=== PATIENT | female | born 1965 | race Caucasian/White ===

== ENCOUNTER 2021-02-09 18:17 | Outpatient (REF) | payer BC, SELFPAY | END 2021-02-09 18:18 | disposition home or self-care (01) | LOC: HO.LNP 18:17 | PROVIDERS: Visit Provider Family Medicine | DX: Z20.822 Contact with and (suspected) exposure to COVID-19 (principal); R05 Cough | CPT/HCPCS: U0003; U0005 ==

== ENCOUNTER 2022-11-06 07:10 | Outpatient (REF) | payer BC, SELFPAY ==
[2022-11-06 11:40] LABS: Hematocrit 40.1 % (37.0-47.0); Hemoglobin 12.8 g/dl (12.0-16.0); Mean Corpuscular HGB Conc 31.9 g/dl (31.0-35.0); Mean Corpuscular Hemoglobin 28.6 pg (27.0-33.0); Mean Corpuscular Volume 89.5 fL (80.0-98.0); Mean Platelet Volume 10.4 fL (9.4-12.3); Platelet Count 259 X10*3/uL (160-400); Red Blood Count 4.48 X10*6/uL (4.20-5.50); Red Cell Distribution Width 13.4 % (11.0-16.0)
[2022-11-06 12:12] LABS: Alanine Aminotransferase 17 U/L (0-31); Albumin Level 4.1 g/dL (3.5-5.0); Alkaline Phosphatase 85 U/L (39-117); Anion Gap 10 (12-20); Aspartate Amino Transferase 21 U/L (5-31); Bilirubin Total 0.6 mg/dL (0.0-1.0); Blood Urea Nitrogen 14 mg/dL (9-16); Calcium 9.3 mg/dL (8.4-10.2); Carbon Dioxide 31 mmol/L (22-29); Chloride 104 mmol/L (96-108); Cholesterol 246 mg/dL; Estimated Glomerular Filt Rate > 60; Glucose Fasting 147 mg/dL (60-99); HDL Cholesterol 31 mg/dL; LDL Cholesterol Calculated 181 mg/dl; Potassium 4.4 mmol/L (3.3-5.1); Sodium 141 mmol/L (135-145); TSH reflex Free T4 2.84 uIU/mL (0.32-4.0); Total Protein 6.9 g/dL (6.5-8.0); Triglycerides 170 mg/dL
== END 2022-11-06 07:11 | disposition home or self-care (01) ==
LOC: HO.WFDLDS 07:10
PROVIDERS: Visit Provider Hospitalist
DX: Z00.00 Encounter for general adult medical examination without abnormal findings (principal)
CPT/HCPCS: 36415; 80053; 80061; 84443; 85027

== ENCOUNTER 2022-11-14 09:07 | Outpatient (REF) | payer BC, SELFPAY ==
[2022-11-14 13:11] LABS: Influenza A PCR POSITIVE (Negative); Influenza B PCR NEGATIVE (Negative); Resp Syncy Virus RNA Qual PCR NEGATIVE (Negative); SARS COV2 PCR INHOUSE NEGATIVE (Negative)
== END 2022-11-14 09:08 | disposition home or self-care (01) ==
LOC: HO.LAB 09:07
PROVIDERS: Visit Provider Nurse Practitioner Family
DX: Z20.822 Contact with and (suspected) exposure to COVID-19 (principal); B34.9 Viral infection, unspecified
CPT/HCPCS: 0241U

== ENCOUNTER 2023-09-25 14:41 | Outpatient (AMB) | payer BC, SELFPAY ==
--- NOTE | 2023-09-25 14:47 | A.OFFPC_ITS ---
Vital Signs 09/25/23 14:48 Height 5 ft 4 in Weight 198 lb 4 oz BMI 34.0 BP 122/60 Blood Pressure Location Rt brachial Position Sitting Respiration 13 Pulse 81 Pulse Source Pulse Oximeter Temp 97.6 F Temp Source Temporal Artery Scan Pulse Oximetry (%) 99 Oxygen Delivery Method Room Air Intake Visit Reasons: discharge from [place] 09/09-09/11 [facility] patient Intake Note: Patient states that shes been experiencing acid reflux really bad. Patient states that her symptoms when she went to the hospital has not subsided. She is still experiencing dizziness, nausea, light headedness and dry heaving. Patient would like an referral to get a mammogram done. Patient would like a refill on Meloxicam and Citalopram if possible. 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 Accompanied by: Self / Same As Patient Allergies No Known Allergies Allergy (Verified 09/25/23 15:18) Medication List - Last Reconciled 09/25/23 by Catrachito Hagen CNP atorvastatin 40 mg PO DAILY citalopram 40 mg PO QAM meloxicam 15 mg PO DAILY sumatriptan succinate 50 mg PO Q2H PRN 3 months Tobacco use date assessed: 09/25/23 Dental Screening Dental Screen Date: 09/25/23 Did you have a dental visit in the last 12 months?: No Did you have a dental problem in the last 6 months where you did not have access to dental care?: No Was dental information given to patient?: Patient has dentist HPI HPI Comments History of Present Illness Details 57-year-old female presents for follow-u p visit. She was evaluated at [facility] ED on 09/10/2023 for dizziness, generalized headache, nausea, and vomiting. She was admitted and discharged on 09/11/2023. CT of the head, and brain MRI were unremarkable. CBC and CMP levels were unremarkable. A1c was 6.6%. Triglyceride was 216, total cholesterol was 207, and LDL was 134. She was started on atorvastatin 40 mg daily and counseled on lifestyle modification. She was advised follow-up with PCP. She notes that she continues to experience dizziness, nausea, lightheadedness, and dry heaving. She notes notes that the dizziness and lightheadedness worsens with changing positions quickly. She notes she was not hydrating well before the onset of her symptoms. She reports indigestion/heartburn for the past 7 months. She has been taking tums with improvement. She notes that she ran out of Citalopram a year ago and requests a new refill. She reports anxiousness, low energy, and constant crying. She notes that she was diagnosed with diabetes 13 years ago. She was on Actos and Metformin. She had lost 90 lb following gastric lab band and sleeve. Her A1c dropped to 5.6% and therefore the Actos and Metformin were discontinued. She notes that she has since gained 25 lb in the past 5 years. She states she will start lifestyle modification. [facility] Medical History (Updated 09/25/23 @ 16:09 by Catrachito Hagen CNP) Depression Anxiety Diabetes mellitus Hyperlipidemia Surgical History Gastric bypass status for obesity Hx of laparoscopic gastric banding Family History Father COPD (chronic obstructive pulmonary disease) Cardiac abnormality No family history of mental disorder Mother No family history of mental disorder Breast cancer Sister No family history of mental disorder Breast cancer Sister No family history of mental disorder Ovarian cancer in remission Social History Household Members: Family Housing: House Alcohol intake: current Alcohol intake frequency: holidays/special occasions only Alcohol type: wine Patient Tobacco Use Status: Never used Tobacco e-Cigarette/Vaping Use: Never Used service: No Current occupational status: employed 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 1. Little interest or pleasure in doing things: several days 2. Feeling down, depressed, or hopeless: several days 3. Trouble falling or staying asleep, or sleeping too much: nearly every day 4. Feeling tired or having little energy: nearly every day 5. Poor appetite or overeating: more than half the days 6. Feeling bad about yourself - or that you are a failure or have let yourself or your family down: several days 7. Trouble concentrating on things, such as reading the newspaper or watching television: several days 8. Moving or speaking so slowly that other people could have noticed. Or the opposite - being so fidgety or restless that you have been moving around a lot more than usual: not at all 9. Thoughts that you would be better off or of hurting yourself in some way: not at all Total score: 12 Depression Screening Interpretation: Positive Depression Screening Follow-up: Existing condition and In treatment Depression Screening Done: Yes Source: Developed by Drs. Xavi Benitez, Adry Tovar, Andrzej Cross and colleagues, with an educational lenin from [employer]. Thrive Questionnaire Date Thrive assessed: 10/29/22 MELANI-7 AMB Questionnaire MELANI-7 Date MELANI - 7 assessed: 09/25/23 Feeling nervous, anxious, or on edge: 1 = Several days Not being able to stop or control worryin = Several days Worrying too much about different things: 1 = Several days Trouble relaxin = Several days Being so restless that it is hard to sit still: 2 = More than half the days Becoming easily annoyed or irritable: 1 = Several days Feeling afraid as if something awful might happen: 0 = Not at all Total MELANI-7 score (0-4 normal; 5-9 mild; 10-14 moderate; 15-21 severe): 7 Source: Developed by Drs. Xavi Benitez, Adry Tovar, Andrzej Cross and colleagues, with an educational lenin from [employer]. Review of Systems Const Details: Const Denies chills, Denies fatigue, Denies fever(s), Denies headache(s) and Denies weakness ENT Reports dizziness and Denies headache(s) Card Denies chest pain, Reports lightheadedness, Denies dyspnea and Denies other (P alpitations) Resp Denies cough, Denies dyspnea, Denies wheezing and Denies other (shortness of breath) GI Reports heartburn/indigestion, Denies abdominal pain, Denies melena, Denies hematochezia, Denies change in bowel habits, Denies dyspepsia and Reports nausea Denies hematuria and Denies dysuria Musc Denies abnormal gait, Denies myalgias, Denies arthralgias, Denies numbness and Denies tingling Skin/Breast Denies rash, Denies unusual bruising and Denies wounds Neuro Denies abnormal gait, Reports dizziness, Denies headache(s), Denies memory loss, Denies numbness, Denies Sensory deficit (Neuro), Denies tingling and Denies weakness Psych Reports anxiety, Reports depression, Denies memory loss Endo Denies cold intolerance, Denies fatigue, Denies heat intolerance, Denies polydipsia and Denies polyuria Aller/Immun Denies wheezing Physical exam (Primary Care) Vital Signs: Last Vital Signs Temp 97.6 F 09/25/23 14:48 Pulse 81 09/25/23 14:48 Resp 13 09/25/23 14:48 BP 122/60 09/25/23 14:48 Pulse Ox 99 09/25/23 14:48 Oxygen Delivery Method Room Air 09/25/23 14:48 BMI result Body Mass Index 34.0 Tobacco/Smoking Status: Tobacco use Status Tobacco use date assessed 09/25/23 09/25/23 15:04 Patient Tobacco Use Status Never used Tobacco 09/25/23 15:04 e-Cigarette/Vaping Use Never Used 09/25/23 15:04 PHQ-9: PHQ-9 Score PHQ-9: Total score 12 09/25/23 15:47 Depression Screening Interpretation: Positive Depression Screening Follow-up: Existing condition and In treatment Thrive Assessment: Date of Thrive Assessment Date Thrive assessed 10/29/22 09/25/23 15:04 Const Other: General: no acute distress and well developed Nutritional Appearance: well nourished Orientation/consciousness: patient oriented x3 HENMT Head: Yes normocephalic and Yes atraumatic Eyes General: appearance normal, both eyes and all related structures Pupils: Equal, round and reactive pupils present EOM: EOMs intact bilaterally Resp Effort & Inspection: normal respiratory effort Auscultation: clear to auscultation bilaterally Cardio Rate: regular rate Rhythm: regular rhythm Heart sounds: S1 normal heart sound present, S2 normal heart sound present, no gallops, no murmurs and no rubs GI Palpation (GI): No Abdominal aortic bruit present, Soft to palpation, nontender, No hepatosplenomegaly present and No Rebound tenderness present Auscultation: normal bowel sounds General: Yes no CVA tenderness Back/Spine/Pelvis Back: no CVA tenderness Cervical Spine: cervical ROM normal and No Cervical spine tenderness Thoracic/Lumbar Spine: thoraco-lumbar ROM normal, No pain with thoraco-lumbar ROM, No thoracic spinal tenderness and No lumbar spinal tenderness Extrem General: Yes normal to inspection, No edema and No calf tenderness Skin General: warm and dry. Normal skin color. Normal skin turgor Lesions: no lesions Rashes: no rashes Trauma: no lacerations or abrasions Wounds: no wounds Nails: normal Neuro General: patient oriented x3, gait normal and no focal neuro deficit Cranial nerves: Yes Equal, round and reactive pupils present Cognition (Neuro): normal cognition Gait exam (Neuro): Normal gait present Sensory Exam: No Sensory deficit (Neuro) Psych Appearance: grossly normal Affect: normal affect Attitude: cooperative Thought process: Normal thought process present Assessment and Plan Assessment & Plan (1) Dizziness: Code(s): R42 - Dizziness and giddiness Plan: She notes that she continues to experience dizziness, nausea, lightheadedness, and dry heaving. She notes notes that the dizziness and lightheadedness worsens with changing positions quickly. She admits to poor hydration prior to her symptoms onset. Likely dehydration Recent labs were unremarkable Adequate hydration encouraged Advised to change positions slowly Follow-up in 6 weeks or return sooner with worsening or new symptoms Verbalized understanding and agreed with treatment plan. (2) Lightheadedness: Code(s): R42 - Dizziness and giddiness Plan: As above (3) Heartburn: Code(s): R12 - Heartburn Plan: She reports indigestion/heartburn for the past 7 months. She has been taking tums with improvement. Advised to avoid fried or greasy food Famotidine ordered. Take as prescribed Follow-up in in 6 weeks or return sooner with worsening or new symptoms Verbalized understanding and agreed with treatment plan. (4) Diabetes mellitus: Code(s): E11.9 - Type 2 diabetes mellitus without complications Qualifiers: Diabetes mellitus complication status: without complication Diabetes mellitus type: type 2 Plan: Recent A1c was 6.6%, below goal of less than 7.0% She reports history of taking Actos and metformin which were discontinued due to controlled A1c of below 6% ADA diet and routine exercise encouraged Will recheck A1c in 3 months Return with symptoms or concerns Verbalized understanding and agreed with treatment plan. (5) Hyperlipidemia: Code(s): E78.5 - Hyperlipidemia, unspecified Plan: Her recent Triglyceride, total cholesterol, and LDL levels were elevated, 216, 207, and 134 respectively. She was was prescribed atorvastatin 40 mg daily during her recent hospital admission. Advised to continue with current treatment regimen Advised to limit foods high in saturated fat and avoid foods high trans fat Routine exercise encouraged Will recheck lipid levels in 6 weeks. Advised to fast for 10-12 hours before getting blood work done Follow-up in 6 weeks Verbalized understanding and agreed with treatment plan. (6) Anxiety with depression: Code(s): F41.8 - Other specified anxiety disorders Plan: She notes that she ran out of Citalopram a year ago and requests a new refill. She reports anxiousness, low energy, and constant crying. She notes that her symptoms were controlled while on citalopram MELANI-7 in PHQ-9 scores revealed mild anxiety and moderate depression respectively Citalopram refilled. Take as prescribed Routine exercise encouraged Follow-up in 6 weeks or return sooner with worsening or new symptoms Verbalized understanding and agreed with treatment plan. Orders: Orders Lipid Panel 6 Weeks E78.5 - Hyperlipidemia, unspecified Medications: New famotidine 20 mg PO DAILY 30 tabs 3RF 30 days Changed From citalopram 40 mg PO QAM 90 tabs 3RF To citalopram 40 mg PO QAM 90 days 90 tabs 1RF Coding Level of Care Code Est Pt Level 4 (29332) Diagnoses Dizziness R42 Lightheadedness R42 Heartburn R12 Diabetes mellitus E11.9 Diabetes mellitus complication status: without complication Diabetes mellitus type: type 2 Hyperlipidemia E78.5 Anxiety with depression F41.8
[2023-09-25 14:48] VITALS: BP 122/60; PULSE 81; RESP 13; TEMP 36.4; O2SAT 99; BMI 34.0
== END 2023-09-25 16:01 | disposition home or self-care (01) ==
PROVIDERS: PCP Nurse Practitioner Family; Visit Provider Nurse Practitioner Family
DX: R42 Dizziness and giddiness (principal); R12 Heartburn; E11.9 Type 2 diabetes mellitus without complications; E78.5 Hyperlipidemia, unspecified; F41.8 Other specified anxiety disorders
CPT/HCPCS: 99214

== ENCOUNTER 2023-10-28 14:39 | Outpatient (AMB) | payer BC, SELFPAY ==
--- NOTE | 2023-10-28 14:50 | A.OFFPC_ITS ---
Vital Signs 10/28/23 14:51 Height 5 ft 4 in Weight 202 lb 3 oz BMI 34.7 BP 108/66 Blood Pressure Location Rt brachial Position Sitting Respiration 13 Pulse 77 Pulse Source Pulse Oximeter Temp 97.6 F Temp Source Temporal Artery Scan Pulse Oximetry (%) 98 Oxygen Delivery Method Room Air Intake Visit Reasons: dizziness/lighthead, DM, heartburn, anxiety/depres Intake Note: Patient states that knee keeps giving out and gets stiff. Stiffness is in left leg and sometimes hurts when bending. Dizziness and light headedness is getting better as well ass anxiety and depression. Patient also states that heartburn has also been getting better and medications are also working. 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 Accompanied by: Self / Same As Patient Allergies No Known Allergies Allergy (Verified 10/28/23 15:16) Medication List - Last Reconciled 10/28/23 by Catrachito Hagen CNP atorvastatin 40 mg PO DAILY citalopram 40 mg PO QAM 90 days famotidine 20 mg PO DAILY 30 days Tobacco use date assessed: 09/25/23 Dental Screening Dental Screen Date: 10/28/23 Did you have a dental visit in the last 12 months?: No Did you have a dental problem in the last 6 months where you did not have access to dental care?: No Was dental information given to patient?: Patient has dentist HPI HPI Comments 2 History of Present Illness Details 58-year-old female presents for dizzines s, lightheadedness, heartburn, hyperlipidemia, anxiety, and depression follow-up She notes that her symptoms are improving She admits to taking her medication as prescribed without adverse reactions She was started on atorvastatin while hospitalized last month. She has not gotten her repeat lipid panel blood work done She reports stiffness in her left knee with intermittent pain with bending. She notes that the left knee keeps giving out. She denies tingling, numbness, loss of sensation. She denies fall, injury, or trauma [facility] Medical History Depression Anxiety Diabetes mellitus Hyperlipidemia Surgical History Gastric bypass status for obesity Hx of laparoscopic gastric banding Family History Father COPD (chronic obstructive pulmonary disease) Cardiac abnormality No family history of mental disorder Mother No family history of mental disorder Breast cancer Sister No family history of mental disorder Breast cancer Sister No family history of mental disorder Ovarian cancer in remission Social History Household Members: Family Housing: House Alcohol intake: current Alcohol intake frequency: holidays/special occasions only Alcohol type: wine Patient Tobacco Use Status: Never used Tobacco e-Cigarette/Vaping Use: Never Used service: No Current occupational status: employed 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 1. Little interest or pleasure in doing things: not at all 2. Feeling down, depressed, or hopeless: not at all 3. Trouble falling or staying asleep, or sleeping too much: more than half the days 4. Feeling tired or having little energy: more than half the days 5. Poor appetite or overeating: several days 6. Feeling bad about yourself - or that you are a failure or have let yourself or your family down: several days 7. Trouble concentrating on things, such as reading the newspaper or watching television: several days 8. Moving or speaking so slowly that other people could have noticed. Or the opposite - being so fidgety or restless that you have been moving around a lot more than usual: not at all 9. Thoughts that you would be better off or of hurting yourself in some way: not at all Total score: 7 Depression Screening Interpretation: Positive Depression Screening Follow-up: Existing condition and In treatment Depression Screening Done: Yes 74458 - PHQ-9 Billing: Yes Source: Developed by Drs. Xavi Benitez, Adry Tovar, Andrzej Cross and colleagues, with an educational lenin from [employer]. Thrive Questionnaire Date Thrive assessed: 10/29/22 MELANI-7 AMB Questionnaire MELANI-7 Date MELANI - 7 assessed: 10/28/23 Feeling nervous, anxious, or on edge: 1 = Several days Not being able to stop or control worryin = Several days Worrying too much about different things: 1 = Several days Trouble relaxin = Several days Being so restless that it is hard to sit still: 1 = Several days Becoming easily annoyed or irritable: 1 = Several days Feeling afraid as if something awful might happen: 0 = Not at all Total MELANI-7 score (0-4 normal; 5-9 mild; 10-14 moderate; 15-21 severe): 6 Source: Developed by Drs. Xavi Benitez, Adry Tovar, Andrzej Cross and colleagues, with an educational lenin from [employer]. MELANI-7 Assessment Billing MELANI-7 Assessment Tool: MELANI-7 Assessment 76402 Review of Systems Const Details: Const Denies chills, Denies fatigue, Denies fever(s), Denies headache(s) and Denies weakness ENT Denies dizziness and Denies headache(s) Card Denies chest pain, Denies lightheadedness, Denies dyspnea and Denies other (Palpitations) Resp Denies cough, Denies dyspnea, Denies wheezing and Denies other ( shortness of breath) GI Denies abdominal pain, Denies melena, Denies hematochezia, Denies change in bowel habits, Denies dyspepsia and Denies nausea Denies hematuria and Denies dysuria Musc Reports as per HPI Skin/Breast Denies rash, Denies unusual bruising and Denies wounds Neuro Denies abnormal gait, Denies dizziness, Denies headache(s), Denies memory loss, Denies numbness, Denies Sensory deficit (Neuro), Denies tingling and Denies weakness Psych Denies anxiety, Denies depression, Denies memory loss Endo Denies cold intolerance, Denies fatigue, Denies heat intolerance, Denies polydipsia and Denies polyuria Aller/Immun Denies wheezing Physical exam (Primary Care) Vital Signs: Last Vital Signs Temp 97.6 F 10/28/23 14:51 Pulse 77 10/28/23 14:51 Resp 13 10/28/23 14:51 BP 108/66 10/28/23 14:51 Pulse Ox 98 10/28/23 14:51 Oxygen Delivery Method Room Air 10/28/23 14:51 BMI result Body Mass Index 34.7 Tobacco/Smoking Status: Tobacco use Status Tobacco use date assessed 09/25/23 10/28/23 14:50 Patient Tobacco Use Status Never used Tobacco 10/28/23 14:50 e-Cigarette/Vaping Use Never Used 10/28/23 14:50 PHQ-9: PHQ-9 Score PHQ-9: Total score 7 10/28/23 15:06 Depression Screening Interpretation: Positive Depression Screening Follow-up: Existing condition and In treatment Thrive Assessment: Date of Thrive Assessment Date Thrive assessed 10/29/22 10/28/23 14:50 Const Other: General: no acute distress and well developed Nutritional Appearance: well nourished Orientation/consciousness: patient oriented x3 HENMT Head: Yes normocephalic and Yes atraumatic Eyes General: appearance normal, both eyes and all related structures Pupils: Equal, round and reactive pupils present EOM: EOMs intact bilaterally Resp Effort & Inspection: normal respiratory effort Auscultation: clear to auscultation bilaterally Cardio Rate: regular rate Rhythm: regular rhythm Heart sounds: S1 normal heart sound present, S2 normal heart sound present, no gallops, no murmurs and no rubs GI Palpation (GI): No Abdominal aortic bruit present, Soft to palpation, nontender, No hepatosplenomegaly present and No Rebound tenderness present Auscultation: normal bowel sounds General: Yes no CVA tenderness Back/Spine/Pelvis Back: no CVA tenderness Cervical Spine: cervical ROM normal and No Cervical spine tenderness Thoracic/Lumbar Spine: thoraco-lumbar ROM normal, No pain with thoraco-lumbar ROM, No thoracic spinal tenderness and No lumbar spinal tenderness Extrem General: Yes normal to inspection, No edema and No calf tenderness Skin General: warm and dry. Normal skin color. Normal skin turgor Lesions: no lesions Rashes: no rashes Trauma: no lacerations or abrasions Wounds: no wounds Nails: normal Neuro General: patient oriented x3, gait normal and no focal neuro deficit Cranial nerves: Yes Equal, round and reactive pupils present Cognition (Neuro): normal cognition Gait exam (Neuro): Normal gait present Sensory Exam: No Sensory deficit (Neuro) Psych Appearance: grossly normal Affect: normal affect Attitude: cooperative Thought process: Normal thought process present Assessment and Plan Assessment & Plan (1) Anxiety with depression: Code(s): F41.8 - Other specified anxiety disorders Plan: Reports improved anxiety depression symptoms PHQ-9 and MELANI-7 scores revealed mild depression and anxiety Continue to take citalopram as prescribed Routine exercise encouraged Follow-up in 1 month for an extended physical exam Verbalized understanding and agreed with treatment plan (2) Stiffness of left knee: Code(s): M25.662 - Stiffness of left knee, not elsewhere classified Plan: Reports stiffness in her left knee with intermittent pain with bending May take Tylenol ibuprofen for pain or discomfort Warm/cold compresses encouraged Referred to physical therapy Return with worsening or new symptoms Verbalized understanding and agreed with treatment plan (3) Dizziness: Code(s): R42 - Dizziness and giddiness Plan: Improving Adequate hydration encouraged Advised to change positions slowly from lying to rising Follow-up with worsening or new symptoms Verbalized understanding and agreed with treatment plan (4) Lightheadedness: Code(s): R42 - Dizziness and giddiness Plan: As above (5) Heartburn: Code(s): R12 - Heartburn Plan: Improving Continue to take famotidine as prescribed Return with worsening or new symptoms Verbalized understanding and agreed with treatment plan (6) Hyperlipidemia: Code(s): E78.5 - Hyperlipidemia, unspecified Plan: She was started on atorvastatin while hospitalized last month. She has not gotten her repeat lipid panel blood work done Encouraged to get fasting blood work done before her next visit Verbalized understanding and agreed with treatment Orders: Orders PT Evaluation and Treatment Today M25.662 - Stiffness of left knee, not elsewhere classified Coding Level of Care Code Est Pt Level 3 (82078) Diagnoses Anxiety with depression F41.8 Stiffness of left knee M25.662 Dizziness R42 Lightheadedness R42 Heartburn R12 Hyperlipidemia E78.5 Additional Codes MELANI-7 Assessment Billing - MELANI-7 Assessment Tool: MELANI-7 Assessment 36432 ([id number])
[2023-10-28 14:51] VITALS: BP 108/66; PULSE 77; RESP 13; TEMP 36.4; O2SAT 98; BMI 34.7
== END 2023-10-28 15:30 | disposition home or self-care (01) ==
PROVIDERS: PCP Nurse Practitioner Family; Visit Provider Nurse Practitioner Family
DX: F41.8 Other specified anxiety disorders (principal); M25.662 Stiffness of left knee, not elsewhere classified; R42 Dizziness and giddiness; R12 Heartburn; E78.5 Hyperlipidemia, unspecified
CPT/HCPCS: 96127; 99213

== ENCOUNTER 2023-11-26 08:47 | Outpatient (REF) | payer BC, SELFPAY ==
[2023-11-26 12:11] LABS: Cholesterol 197 mg/dL (<200); HDL Cholesterol 31 mg/dL (>40); LDL Cholesterol Calculated 123 mg/dL (<100); Triglycerides 215 mg/dL (<150)
== END 2023-11-26 08:48 | disposition home or self-care (01) ==
LOC: HO.WFDLDS 08:47
PROVIDERS: Visit Provider Nurse Practitioner Family
DX: E78.5 Hyperlipidemia, unspecified (principal)
CPT/HCPCS: 36415; 80061

== ENCOUNTER 2023-12-05 08:24 | Outpatient (AMB) | payer BC, SELFPAY ==
[2023-12-05 08:32] VITALS: BP 104/60; PULSE 92; RESP 13; TEMP 36.6; O2SAT 98; BMI 34.4
--- NOTE | 2023-12-05 08:32 | MHC.PC.OV ---
Vital Signs 12/05/23 08:32 Height 5 ft 4 in Weight 200 lb 4 oz BMI 34.4 BP 104/60 Blood Pressure Location Rt brachial Position Sitting Respiration 13 Pulse 92 Pulse Source Pulse Oximeter Temp 97.9 F Temp Source Temporal Artery Scan Pulse Oximetry (%) 98 Oxygen Delivery Method Room Air Intake Visit Reasons: CPE Intake Note: Patient states that the famotidine isnt working for acid reflux. Patient would like script for joint pain if possible or something over the counter. 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: No Accompanied by: Self / Same As Patient Allergies No Known Allergies Allergy (Verified 12/05/23 08:47) Medication List - Last Reviewed 12/05/23 by Daxa Salter MA acetaminophen ER (Tylenol 8 Hour) 650 mg PO Q8H PRN atorvastatin 40 mg PO DAILY citalopram 40 mg PO QAM 90 days fenofibrate 54 mg PO DAILY 90 days omeprazole 20 mg PO DAILY 90 days Tobacco use date assessed: 12/05/23 Dental Screening Dental Screen Date: 12/05/23 Did you have a dental visit in the last 12 months?: No Did you have a dental problem in the last 6 months where you did not have access to dental care?: No Was dental information given to patient?: Patient has dentist HPI HPI Comments History of Present Illness Details 58-year-old presents 58-year-old female presents for an extended physical exam She has history diabetes, hyperlipidemia, GERD, anxiety, and depression She admits to taking Citalopram as prescribed without adverse reactions She notes that she was only given 30 days supply, instead of 90 days, of Citalopram and Atovastatin. She stopped taking Atovastatin because she ran out of refills She notes that famotidine is not effective for her acid reflux. She has been taking Omeprazole with relief She requests medication for intermittent generalized joints pain (shoulder, wrists, knees, and ankles) She will start physical therapy next week for left knee stiffness Last colonoscopy 03/21/2023: normal Last mammogram was about 5 years ago: normal Last pap smear test was 3 years ago: normal She has never been been vaccinated for shingles She had initial COVID-19 vaccines She has not receive current flu vaccine. She notes adverse reactions to the flu vaccine and therefore declines the vaccines [facility] Medical History Depression Anxiety Diabetes mellitus Hyperlipidemia Surgical History Gastric bypass status for obesity Hx of laparoscopic gastric banding Family History Father COPD (chronic obstructive pulmonary disease) Cardiac abnormality No family history of mental disorder Mother No family history of mental disorder Breast cancer Sister No family history of mental disorder Breast cancer Sister No family history of mental disorder Ovarian cancer in remission Social History Household Members: Family Housing: House Alcohol intake: current Alcohol intake frequency: holidays/special occasions only Alcohol type: wine Patient Tobacco Use Status: Never used Tobacco e-Cigarette/Vaping Use: Never Used service: No Current occupational status: employed 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 1. Little interest or pleasure in doing things: more than half the days 2. Feeling down, depressed, or hopeless: several days 3. Trouble falling or staying asleep, or sleeping too much: nearly every day 4. Feeling tired or having little energy: nearly every day 5. Poor appetite or overeating: more than half the days 6. Feeling bad about yourself - or that you are a failure or have let yourself or your family down: not at all 7. Trouble concentrating on things, such as reading the newspaper or watching television: more than half the days 8. Moving or speaking so slowly that other people could have noticed. Or the opposite - being so fidgety or restless that you have been moving around a lot more than usual: several days 9. Thoughts that you would be better off or of hurting yourself in some way: not at all Total score: 14 Depression Screening Interpretation: Positive Depression Screening Follow-up: Existing condition and In treatment Depression Screening Done: Yes 45500 - PHQ-9 Billing: Yes Source: Developed by Drs. Xavi Benitez, Adry Tovar, Andrzej Cross and colleagues, with an educational lenin from [email or web address]. Thrive Questionnaire Date Thrive assessed: 12/05/23 I am a: Patient What is your living situation today?: I have a steady place to live Within the past 12 months, did the food you bought not last and you didn't have the money to get more?: Never true Within the past 12 months, did you worry whether your food would run out before you got money to buy more?: Never true Do you have trouble paying for medicines?: No Do you have trouble getting transportation to medical appointments?: No Do you have trouble paying your heating and electricity bill?: No Do you have trouble taking care of your child, family member or friend?: No Do you have trouble with day-to-day activities such as bathing, preparing meals, shopping, managing finances, etc.?: No Are you currently unemployed and looking for a job?: No Are you interested in more education?: No Please select the resources that you would like help with: None Currently or been in a relationship where the following occur: no concerns reported AUDIT C Alcohol Use Questionnaire (AUDIT-C) 1. How often do you have a drink containing alcohol?: 2-4 times a month 2. How many drinks containing alcohol do you have on a typical day when you are drinking?: 1 or 2 3. How often do you have six or more drinks on one occasion?: Never Total Score: 2 MELANI-7 AMB Questionnaire MELANI-7 Date MELANI - 7 assessed: 12/05/23 Feeling nervous, anxious, or on edge: 1 = Several days Not being able to stop or control worryin = Several days Worrying too much about different things: 1 = Several days Trouble relaxin = Several days Being so restless that it is hard to sit still: 2 = More than half the days Becoming easily annoyed or irritable: 1 = Several days Feeling afraid as if something awful might happen: 0 = Not at all Total MELANI-7 score (0-4 normal; 5-9 mild; 10-14 moderate; 15-21 severe): 7 Source: Developed by Drs. Xavi Benitez, Adry Tovar, Andrzej Cross and colleagues, with an educational lenin from [employer] MELANI-7 Assessment Billing MELANI-7 Assessment Tool: MELANI-7 Assessment 96938 Review of Systems Const Details: Const Denies chills, Denies fatigue, Denies fever(s), Denies headache(s) and Denies weakness ENT Denies dizziness and Denies headache(s) Card Denies chest pain, Denies lightheadedness, Denies dyspnea and Denies other (Palpitations) Resp Denies cough, Denies dyspnea, Denies wheezing and Denies other ( shortness of breath) GI Denies abdominal pain, Denies melena, Denies hematochezia, Denies change in bowel habits, Denies dyspepsia and Denies nausea Denies hematuria and Denies dysuria Musc Denies abnormal gait, Denies myalgias, Denies arthralgias, Denies numbness and Denies tingling Skin/Breast Denies rash, Denies unusual bruising and Denies wounds Neuro Denies abnormal gait, Denies dizziness, Denies headache(s), Denies memory loss, Denies numbness, Denies Sensory deficit (Neuro), Denies tingling and Denies weakness Psych Denies anxiety, Denies depression, Denies memory loss Endo Denies cold intolerance, Denies fatigue, Denies heat intolerance, Denies polydipsia and Denies polyuria Aller/Immun Denies wheezing Physical exam (Primary Care) Vital Signs: Last Vital Signs Temp 97.9 F 12/05/23 08:32 Pulse 92 12/05/23 08:32 Resp 13 12/05/23 08:32 BP 104/60 12/05/23 08:32 Pulse Ox 98 12/05/23 08:32 Oxygen Delivery Method Room Air 12/05/23 08:32 BMI result Body Mass Index 34.4 Tobacco/Smoking Status: Tobacco use Status Tobacco use date assessed 12/05/23 12/05/23 08:45 Patient Tobacco Use Status Never used Tobacco 12/05/23 08:41 e-Cigarette/Vaping Use Never Used 12/05/23 08:41 PHQ-9: PHQ-9 Score PHQ-9: Total score 14 12/05/23 08:49 Depression Screening Interpretation: Positive Depression Screening Follow-up: Existing condition and In treatment Thrive Assessment: Date of Thrive Assessment Date Thrive assessed 12/05/23 12/05/23 08:45 Currently or been in a relationship where the following occur: no concerns reported Const Other: General: no acute distress and well developed Nutritional Appearance: well nourished Orientation/consciousness: patient oriented x3 [facility] Head: Yes normocephalic and Yes atraumatic Eyes General: appearance normal, both eyes and all related structures Pupils: Equal, round and reactive pupils present EOM: EOMs intact bilaterally Resp Effort & Inspection: normal respiratory effort Auscultation: clear to auscultation bilaterally Cardio Rate: regular rate Rhythm: regular rhythm Heart sounds: S1 normal heart sound present, S2 normal heart sound present, no gallops, no murmurs and no rubs GI Palpation (GI): No Abdominal aortic bruit present, Soft to palpation, nontender, No hepatosplenomegaly present and No Rebound tenderness present Auscultation: normal bowel sounds General: Yes no CVA tenderness Back/Spine/Pelvis Back: no CVA tenderness Cervical Spine: cervical ROM normal and No Cervical spine tenderness Thoracic/Lumbar Spine: thoraco-lumbar ROM normal, No pain with thoraco-lumbar ROM, No thoracic spinal tenderness and No lumbar spinal tenderness Extrem General: Yes normal to inspection, No edema and No calf tenderness Skin General: warm and dry. Normal skin color. Normal skin turgor Lesions: no lesions Rashes: no rashes Trauma: no lacerations or abrasions Wounds: no wounds Nails: normal Neuro General: patient oriented x3, gait normal and no focal neuro deficit Cranial nerves: Yes Equal, round and reactive pupils present Cognition (Neuro): normal cognition Gait exam (Neuro): Normal gait present Sensory Exam: No Sensory deficit (Neuro) Psych Appearance: grossly normal Affect: normal affect Attitude: cooperative Thought process: Normal thought process present Assessment and Plan Assessment & Plan (1) Normal physical examination, routine: Code(s): Z00.00 - Encounter for general adult medical examination without abnormal findings Plan: No significant physical restrictions or limitations noted Continue current treatment regimen Follow-up in 1 month for diabetes, anxiety, and depression Return sooner with symptoms or concerns Verbalized understanding and agreed with treatment plan (2) Hyperlipidemia: Code(s): E78.5 - Hyperlipidemia, unspecified Plan: Recent lab results reviewed with the patient Triglyceride level is increased from previous, 215. Total cholesterol and LDL levels have improved, 187 and 123 respectively. LDL level is low, 31d Fenofibrate ordered. Take as prescribed The MA called the pharmacy and was informed that 30 days supplies of her atovastatin and citalopram were given to the patient and that the patient would have to request refills every 30 days. Patient notified and advised to take atovastatin and citalopram as prescribed Advised to limit foods high in saturated fat and avoid foods high in trans fat Routine exercise encouraged Will recheck lipid levels in 6-8 weeks Verbalized understanding and agreed with treatment plan (3) Generalized osteoarthritis of multiple sites: Code(s): M15.9 - Polyosteoarthritis, unspecified Plan: Reports intermittent pain to her shoulder, wrists, knees, and ankles Tylenol ordered. Take as prescribed Warm/cold compresses encouraged Follow-up with worsening or new symptoms Verbalized understanding and agreed with treatment plan (4) Heartburn: Code(s): R12 - Heartburn Plan: Famotidine was ineffective Otc Omeprazole provides relief Omeprazole ordered. Take as prescribed Follow-up with new or worsening symptoms Verbalized understanding and agreed with treatment plan (5) Breast cancer screening by mammogram: Code(s): Z12.31 - Encounter for screening mammogram for malignant neoplasm of breast Plan: Last mammogram was about 5 years ago: normal Mammogram ordered (6) Pap smear for cervical cancer screening: Code(s): Z12.4 - Encounter for screening for malignant neoplasm of cervix Plan: Last pap smear test was 3 years ago: normal Referred to [facility] rake operator for a Pap smear test (7) Vaccine counseling: Code(s): Z71.85 - Encounter for immunization safety counseling Plan: She has not received the shingles vaccines Instructed on importance of vaccination and encouraged to get vaccinated for shingles Verbalized understanding and agreed with treatment plan Orders: Orders MM screening mammo BI Today Z12.31 - Encounter for screening mammogram for malignant neoplasm of breast Referrals MEDICATION AID Referral Z12.4 - Encounter for screening for malignant neoplasm of cervix Medications: New omeprazole 20 mg PO DAILY 90 days 90 caps 1RF omeprazole 20 mg PO DAILY 30 days 30 caps 3RF fenofibrate 54 mg PO DAILY 90 days 90 tabs 1RF acetaminophen ER (Tylenol 8 Hour) 650 mg PO Q8H PRN 90 tabs 2RF pain atorvastatin 40 mg PO DAILY 30 days 30 tabs 3RF Changed From citalopram 40 mg PO QAM 90 days 90 tabs 1RF To citalopram 40 mg PO QAM 30 days 30 tabs 3RF Coding Level of Care Code Est Pt Prev Care 40-64y(31906) Diagnoses Normal physical examination, routine Z00.00 Hyperlipidemia E78.5 Generalized osteoarthritis of multiple sites M15.9 Heartburn R12 Breast cancer screening by mammogram Z12.31 Pap smear for cervical cancer screening Z12.4 Vaccine counseling Z71.85 Additional Codes MELANI-7 Assessment Billing - MELANI-7 Assessment Tool: MELANI-7 Assessment 94286 ([id number])
== END 2023-12-05 09:07 | disposition home or self-care (01) ==
PROVIDERS: PCP Nurse Practitioner Family; Visit Provider Nurse Practitioner Family
DX: Z00.00 Encounter for general adult medical examination without abnormal findings (principal); E78.5 Hyperlipidemia, unspecified; M15.9 Polyosteoarthritis, unspecified; R12 Heartburn; Z12.31 Encounter for screening mammogram for malignant neoplasm of breast; Z12.4 Encounter for screening for malignant neoplasm of cervix; Z71.85 Encounter for immunization safety counseling
CPT/HCPCS: 99396

== ENCOUNTER 2023-12-26 16:38 | Outpatient (AMB) | payer BC, SELFPAY ==
[2023-12-26 16:41] VITALS: BP 130/60; PULSE 83; RESP 13; TEMP 36.2; O2SAT 96; BMI 35.1
--- NOTE | 2023-12-26 16:41 | MHC.PC.OV ---
Vital Signs 12/26/23 16:41 Height 5 ft 4 in Weight 204 lb 4 oz BMI 35.1 BP 130/60 Blood Pressure Location Rt brachial Position Sitting Respiration 13 Pulse 83 Pulse Source Pulse Oximeter Temp 97.2 F Temp Source Temporal Artery Scan Pulse Oximetry (%) 96 Oxygen Delivery Method Room Air Intake Visit Reasons: ?[place]tt eye Policy Value Calculator Required: No Accompanied by: Self / Same As Patient Allergies No Known Allergies Allergy (Verified 12/26/23 16:58) Medication List - Last Reconciled 12/26/23 by Catrachito Hagen CNP acetaminophen ER (Tylenol 8 Hour) 650 mg PO Q8H PRN atorvastatin 40 mg PO DAILY 30 days citalopram 40 mg PO QAM 30 days fenofibrate 54 mg PO DAILY 90 days omeprazole 20 mg PO DAILY 30 days Tobacco use date assessed: 12/05/23 HPI HPI Comments History of Present Illness Details 58-year-old female presents with complaints of left pink eye since yesterday. 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 She reports itching and pressure pain in the eye that responds well to Tylenol. She also notes intermittent clear drainage which started today. No visual disturbances or headache. [facility] Medical History Depression Anxiety Diabetes mellitus Hyperlipidemia Surgical History Gastric bypass status for obesity Hx of laparoscopic gastric banding Family History Father COPD (chronic obstructive pulmonary disease) Cardiac abnormality No family history of mental disorder Mother No family history of mental disorder Breast cancer Sister No family history of mental disorder Breast cancer Sister No family history of mental disorder Ovarian cancer in remission Social History Household Members: Family Housing: House Alcohol intake: current Alcohol intake frequency: holidays/special occasions only Alcohol type: wine Patient Tobacco Use Status: Never used Tobacco e-Cigarette/Vaping Use: Never Used service: No Current occupational status: employed 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 Xavi Benitez, Adry Tovar, Andrzej Cross and colleagues, with an educational lenin from [employer]. Review of Systems Const Details: Const Denies chills, Denies fatigue, Denies fever(s), Denies headache(s) and Denies weakness ENT Reports as per HPI Card Denies chest pain, Denies lightheadedness, Denies dyspnea and Denies other (Palpitations) Resp Denies cough, Denies dyspnea, Denies wheezing and Denies other ( shortness of breath) GI Denies abdominal pain, Denies melena, Denies hematochezia, Denies change in bowel habits, Denies dyspepsia and Denies nausea Denies hematuria and Denies dysuria Musc Denies abnormal gait, Denies myalgias, Denies arthralgias, Denies numbness and Denies tingling Skin/Breast Denies rash, Denies unusual bruising and Denies wounds Neuro Denies abnormal gait, Denies dizziness, Denies headache(s), Denies memory loss, Denies numbness, Denies Sensory deficit (Neuro), Denies tingling and Denies weakness Psych Denies anxiety, Denies depression, Denies memory loss Endo Denies cold intolerance, Denies fatigue, Denies heat intolerance, Denies polydipsia and Denies polyuria Aller/Immun Denies wheezing Physical exam (Primary Care) Vital Signs: Last Vital Signs Temp 97.2 F 12/26/23 16:41 Pulse 83 12/26/23 16:41 Resp 13 12/26/23 16:41 BP 130/60 12/26/23 16:41 Pulse Ox 96 12/26/23 16:41 Oxygen Delivery Method Room Air 12/26/23 16:41 BMI result Body Mass Index 35.1 Tobacco/Smoking Status: Tobacco use Status Tobacco use date assessed 12/05/23 12/05/23 08:45 Patient Tobacco Use Status Never used Tobacco 12/05/23 08:41 e-Cigarette/Vaping Use Never Used 12/05/23 08:41 Thrive Assessment: Date of Thrive Assessment Date Thrive assessed 12/05/23 12/05/23 08:45 Const Other: General: no acute distress and well developed Nutritional Appearance: well nourished Orientation/consciousness: patient oriented x3 [facility] Head is normocephalic Bilateral ear canal and TM are normal Nasal turbinates and oropharynx are pink and moist Sinuses are nontender with palpation No auricular or cervical lymphadenopathy Eyes General: appearance normal, both eyes and all related structures. Significant edema of the left conjunctiva. No discharge Pupils: Equal, round and reactive pupils present EOM: EOMs intact bilaterally Resp Effort & Inspection: normal respiratory effort Auscultation: clear to auscultation bilaterally Cardio Rate: regular rate Rhythm: regular rhythm Heart sounds: S1 normal heart sound present, S2 normal heart sound present, no gallops, no murmurs and no rubs GI Palpation (GI): No Abdominal aortic bruit present, Soft to palpation, nontender, No hepatosplenomegaly present and No Rebound tenderness present Auscultation: normal bowel sounds General: Yes no CVA tenderness Back/Spine/Pelvis Back: no CVA tenderness Cervical Spine: cervical ROM normal and No Cervical spine tenderness Thoracic/Lumbar Spine: thoraco-lumbar ROM normal, No pain with thoraco-lumbar ROM, No thoracic spinal tenderness and No lumbar spinal tenderness Extrem General: Yes normal to inspection, No edema and No calf tenderness Skin General: warm and dry. Normal skin color. Normal skin turgorl Neuro General: patient oriented x3, gait normal and no focal neuro deficit Cranial nerves: Yes Equal, round and reactive pupils present Cognition (Neuro): normal cognition Gait exam (Neuro): Normal gait present Sensory Exam: No Sensory deficit (Neuro) Psych Appearance: grossly normal Affect: normal affect Attitude: cooperative Thought process: Normal thought process present Assessment and Plan Assessment & Plan (1) Conjunctivitis, left eye: Code(s): H10.9 - Unspecified conjunctivitis Plan: Left eye redness, itching, and pain since yesterday Significant edema of the left conjunctiva. No discharge Likely viral conjunctivitis Erythromycin ordered. Take as prescribed Warm compresses encouraged May take Tylenol/ibuprofen for pain or discomfort Frequent handwashing encouraged to prevent spread Follow-up with worsening or new symptoms Verbalized understanding and agreed with treatment plan Medications: New erythromycin Administer to left eye 3 times daily 0.5 inches ophthalmic (eye) TID 7 days 3.5 grams 0RF Coding Level of Care Code Est Pt Level 3 (00813) Diagnoses Conjunctivitis, left eye H10.9
== END 2023-12-26 17:06 | disposition home or self-care (01) ==
PROVIDERS: PCP Nurse Practitioner Family; Visit Provider Nurse Practitioner Family
DX: H10.9 Unspecified conjunctivitis (principal)
CPT/HCPCS: 99213

== ENCOUNTER → 2024-01-14 16:00 | Outpatient (BNV) | payer BC, SELFPAY | PROVIDERS: Visit Provider Radiology Diagnostic Radiology | DX: Z12.31 Encounter for screening mammogram for malignant neoplasm of breast (principal) | CPT/HCPCS: 77063; 77067 ==

== ENCOUNTER 2024-01-14 16:02 | Outpatient (REF) | payer BC, SELFPAY ==
--- NOTE | ~2024-01-14 | MM_ITS ---
EXAMINATION: MM SCREENING DIGITAL BREAST TOMOSYNTHESIS, BILATERAL CLINICAL INFORMATION: Screening. Asymptomatic. COMPARISON: Mammography: This study is compared with prior exams dating back to 2013. TECHNIQUE: Digital breast tomosynthesis is performed in both the craniocaudal and mediolateral oblique views along with computer-aided detection (CAD). Synthesized 2D images are generated from the tomosynthesis. FINDINGS: There are scattered areas of fibroglandular density (ACR BI-RADS breast composition Category b). There are no significant masses, abnormal calcifications, or other abnormalities. MM/MM tomosynthesis screening BI IMPRESSION: No mammographic evidence of malignancy. ASSESSMENT: BI-RADS BI-RADS 1 - Negative RECOMMENDATION: Routine annual mammography screening. 1 year F/U This examination should not preclude the clinical evaluation of a suspicious palpable abnormality. This patient's information was entered into a reminder system with a target due date for their next mammogram.
== END 2024-01-14 16:03 | disposition home or self-care (01) ==
LOC: HO.MAMMO 16:02
PROVIDERS: Visit Provider Nurse Practitioner Family
DX: Z12.31 Encounter for screening mammogram for malignant neoplasm of breast (principal)
CPT/HCPCS: 77063; 77067

== ENCOUNTER 2024-02-19 15:00 | Outpatient (RCR) | payer BC, SELFPAY ==
--- NOTE | 2023-12-31 16:43 | MHC.PT.EP ---
[facility] [place] Office [place] [facility] [place] Office [address] Christiano Saenz [address] [phone] F: [phone] F: [phone] F: [phone] F: [phone] Physical Therapy Plan of Care Date of Evaluation: 12/30/23 Date of Surgery: Diagnosis: Stiffness of L knee Assessment: Sondra is a 58 yo female presenting to skilled physical therapy evaluation and treatment with c/o L knee stiffness and pain. Pt reports gradual onset on L knee pain beginning ~3-4 months ago, and has worsened start 3 weeks ago. Pt denies recent imaging or prior participation in PT. She is having the most functional difficulty with walking, prolonged sitting, stair navigation, and sleeping in L S/L. Upon evaluation, pt presents with mild edema, abnormal gait mechanics, decreased L knee ROM, poor L quad activation, and L patellar hypomobility. Pt demonstrates postural deficits which are contributing to posterior chain tightness and decreased hip/knee stability, which are exacerbated with mobility. Pt would benefit from skilled PT services to address muscular imbalances, increase L knee ROM, and maximize functional mobility toward PLOF. Pt is recommended to attend PT 2x/week for 4 weeks. Frequency and Duration: The patient will be seen 2x/week for 4 weeks Short Term Goals: Pt will demonstrate independence with initial HEP through teach-back method, showing proper compliance to PT Pt will achieve full L knee extension, allowing for normal gait mechanics Pt will be able to perform 15 consecutive quad sets in supine with proper activation and patellar tracking Cs Associate Goals: Pt will achieve pain free L knee ROM WNL to allow for symmetrical motion and improve stair navigation Pt will increase hip/knee MMTs by at least 1/2 muscle grade to increase stability necessary for weightbearing mobility Pt will ambulate 50' with no exacerbation of s/s and normal gait mechanics Pt will demonstrate improved functional mobility as noted through statistically significant increase in LEFI outcome measure Treatment Plan: Modalities to reduce pain, spasms and effusion. Manual therapy to restore motion and function. Therapeutic exercise to improve strength and flexibility. Neuromuscular re-education for posture and balance. Therapeutic activities to return to functional activities of daily living. Electronically signed by: Arabella Chiu, PT, DPT Please sign and return to therapist. Thank you for your referral.
--- NOTE | 2024-04-27 13:59 | MHC.PT.DC ---
[facility] [place] Office [place] Office [place] Office [address] Christiano Saenz [address] [phone] F: [phone] F: [phone] F: [phone] F: [phone] Physical Therapy Discharge Report Diagnosis: Stiffness of L knee Date of Surgery: Date of Evaluation: 12/30/23 Date of Discharge: 04/27/24 Treatments to Date: 7 Cancellations to Date: 1 No Shows to Date: Discharge Status: Discharge Summary: Pt was seen for PT from 12/30/23-02/19/24. Her last attended appointment was 02/19/24 and she cancelled her last scheduled appointment for 02/24/24. She is being D/C from skilled PT as she has not attended or called to reschedule in > 30 days Electronically signed by: Arabella Chiu, PT, DPT Please sign and return to therapist. Thank you for your referral.
== END 2024-04-27 13:58 | disposition home or self-care (01) ==
LOC: HO.PT 15:00
PROVIDERS: PCP Nurse Practitioner Family; Visit Provider Nurse Practitioner Family
DX: M25.562 Pain in left knee (principal)
CPT/HCPCS: 97110; 97112; 97162

== ENCOUNTER 2024-04-21 15:33 | Outpatient (AMB) | payer BC, SELFPAY ==
[2024-04-21 15:34] VITALS: BP 110/64; BMI 35.7
--- NOTE | 2024-04-21 15:34 | A.OFFVIS_ITS ---
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 No complaints. Last Pap/HPV was more than 5 years ago Last Mammogram was BI-RADS 1 in 01/24 Last Colonoscopy was in 03/22, the recommendation was to repeat in 10 years [facility] Medical History Depression Anxiety Diabetes mellitus Hyperlipidemia Surgical History Gastric bypass status for obesity Hx of laparoscopic gastric banding Family History Father COPD (chronic obstructive pulmonary disease) Cardiac abnormality No family history of mental disorder Mother No family history of mental disorder Breast cancer Sister No family history of mental disorder Breast cancer Sister No family history of mental disorder Ovarian cancer in remission Social History (Updated 04/21/24 @ 15:39 by Nargis Benjamin CMA) Household Members: Spouse Housing: House Alcohol intake: current Alcohol intake frequency: holidays/special occasions only Alcohol type: wine Patient Tobacco Use Status: Never used Tobacco e-Cigarette/Vaping Use: Never Used service: No Current occupational status: employed 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 Sexual orientation: Straight/Heterosexual Gender identity: Female Cognitive needs: No Hearing needs: Yes Vision needs: Yes Female Reproductive History Menstrual Menopause type: natural Total pregnancies: 4 Full term: 4 Number of Living Children: 4 Date of Mammogram: 01/24/24 Review of Systems Const All systems reviewed & are unremarkable except as noted in HPI and below Card Reports as per HPI Resp Reports as per HPI GI Reports as per HPI and Reports no additional complaints Reports as per HPI Physical Exam Vital Signs: Last Vital Signs BP 110/64 04/21/24 15:34 BMI result Body Mass Index 35.7 Const General: cooperative, healthy appearing and comfortable Chest Chest palpation & inspection: normal inspection of the chest and normal palpation of entire chest wall Breast/axilla inspection: normal inspection of the breasts and normal inspection of the axillae Breast/axilla palpation: normal palpation of the breasts, normal palpation of the axillae and no axillary lymphadenopathy Resp Effort & Inspection: normal respiratory effort Auscultation: clear to auscultation bilaterally Percussion: percussion normal Cardio Palpation: normal PMI Rate: regular rate Rhythm: regular rhythm Heart sounds: no murmurs and no rubs Peripheral pulses: Peripheral pulses 2+ throughout GI Inspection: Yes normal to inspection Palpation (GI): Soft to palpation, nontender, no guarding, not rigid and No hepatosplenomegaly present Percussion: Yes normal to percussion Auscultation: normal bowel sounds Rectal Exam - Female: deferred General: Yes bladder normal to palpation External Female Exam: No lesion Speculum Exam - Vagina: normal appearance of the vagina, normal palpation, normal vaginal discharge and not erythematous Speculum Exam - Cervix: normal appearance of the cervix and normal palpation Bimanual exam- vagina & uterus: normal bimanual exam, normal palpation, uterine size normal, bladder normal to palpation, consistency normal and normal palpation Bimanual Exam- Adnexa, other: normal adnexae, no masses and no tenderness Assessment & Plan Assessment & Plan (1) Well woman exam: Code(s): Z01.419 - Encounter for gynecological examination (general) (routine) without abnormal findings Category: Medical Plan: Co testing done. Counseled the patient about the recommended dietary allowance of 1200 mg of Calcium & 600 IU of vitamin D. Instructions given the patient to schedule a screening Mammogram in 03/25. The patient was instructed to perform monthly self-breast exams and schedule annual exam in a year. All questions answered and the patient verbalized understanding. (2) Family history of ovarian cancer: Code(s): Z80.41 - Family history of malignant neoplasm of ovary Category: Medical Plan: Discussed with the patient the following information regarding screening for ovarian ca: CA 125, the most widely studied tumor marker for ovarian cancer screening, is elevated in 50 to 90 percent of women with early ovarian cancer but also can be elevated in numerous other conditions. There is no evidence to support using Ca 125 as a screening in average-risk women Serial measurements of CA 125, using an algorithm that incorporates age and rate of change, may improve the positive predictive value of screening but not sufficiently to incorporate into clinical practice at this time. Transvaginal ultrasonography when used as a sole screening intervention has not been effective in identifying early-stage cancer. There is no evidence to suggest screening average-risk women for ovarian cancer Family history is essential to identify patients with potential hereditary/familial cancer syndrome. Example BRCA1 , BRCA2, Esparza syndrome or others -High-risk family history with positive genetic testing will benefit from risk reduction bilateral salpingo-oophorectomy to reduce the risk. -Lower risk family history, patient's with remote family member with ovarian cancer without evidence of hereditary pattern, ovarian cancer risk is increased to a lesser extent than family cancer syndrome. There is no evidence that screening is effective , therefore ovarian cancer screening is generally not advised, because of the limited evidence of benefits and the potential for harm from the false-positive results. -Average risk patient's, asymptomatic woman at average risk without a genetic predisposition or family history of ovarian cancer, the recommendation is against screening for ovarian cancer since there is no evidence that the benefits of screening for ovarian cancer outweigh the harms related to the adverse effects of false-positive results. Will refer to cancer genetic at [facility]. Instructed the patient to call our office back in case a referral appointment is not scheduled, missed or canceled so that we will assist on rescheduling another appointment, the patient verbalized understanding agreed with the plan. All question answered , the patient verbalized understanding. (3) Family history of breast cancer: Code(s): Z80.3 - Family history of malignant neoplasm of breast Category: Medical Plan: Discussed with the patient the family history of breast cancer ovarian cancer colon cancer in her 3 first-degree relatives, recommended referral to [facility] cancer Genetics for counseling and possible genetic testing Orders: Referrals Genetics Referral Z80.3 - Family history of malignant neoplasm of breast, Z80.41 - Family history of malignant neoplasm of ovary Coding Level of Care Code New Pt Level 3 (53820) Diagnoses Well woman exam Z01.419 Family history of ovarian cancer Z80.41 Family history of breast cancer Z80.3
== END 2024-04-22 07:18 | disposition home or self-care (01) ==
LOC: HO.HWS 15:33
PROVIDERS: PCP Nurse Practitioner Family; Visit Provider Obstetrics & Gynecology
DX: Z01.419 Encounter for gynecological examination (general) (routine) without abnormal findings (principal); Z80.41 Family history of malignant neoplasm of ovary; Z80.3 Family history of malignant neoplasm of breast
CPT/HCPCS: 99386

== ENCOUNTER 2024-04-21 15:33 | Outpatient (REF) | payer BC, SELFPAY ==
[2024-04-28 22:48] LABS: HPV mRNA E6/E7 rflx Not Detected (Not Detected)
== END 2024-04-21 15:34 | disposition home or self-care (01) ==
LOC: HO.LNP 15:33
PROVIDERS: PCP Nurse Practitioner Family; Visit Provider Obstetrics & Gynecology
DX: Z01.419 Encounter for gynecological examination (general) (routine) without abnormal findings (principal); Z11.51 Encounter for screening for human papillomavirus (HPV)
CPT/HCPCS: 87624; 88142

== ENCOUNTER 2024-10-04 15:16 | Outpatient (AMB) | payer BC, SELFPAY ==
--- NOTE | 2024-10-04 15:19 | A.OFFPC_ITS ---
Vital Signs 10/04/24 15:27 Height 5 ft 4 in Weight 210 lb 8 oz BMI 36.1 BP 118/76 Blood Pressure Location Lt brachial Position Sitting Respiration 16 Pulse 71 Pulse Source Pulse Oximeter Temp 97.8 F Temp Source Oral Pulse Oximetry (%) 97 Oxygen Delivery Method Room Air Intake Visit Reasons: Light Headiness - Chest pain Intake Note: patient here c/o light headed for about 2 weeks and shortness of breath and chest pain when walking up stairs and stuff. Brush Stainer Required: No Is last menstrual period known: No Post menopausal: No Patient : No Allergies No Known Allergies Allergy (Verified 12/26/23 16:58) Tobacco use date assessed: 10/04/24 Dental Screening Dental Screen Date: 10/04/24 Did you have a dental visit in the last 12 months?: Yes Did you have a dental problem in the last 6 months where you did not have access to dental care?: No Was dental information given to patient?: Patient has dentist HPI HPI Comments History of Present Illness Details 58-year-old female, accompanied by her h usband, presents with complaints of lightheadedness, dizziness, and head fog. Her symptoms have been ongoing intermittently for the 2-3 weeks. She has been experiencing persistent lightheadedness and dizziness which waxes and wanes since 11 am today. She also reports intermittent shortness of breaths and chest tightness only when climbing up stairs for the past 3 months. She has gained 20 lb over the past year and a half. No chest discomfort at this times. She denies headaches or visual disturbances. [facility] Medical History Depression Anxiety Diabetes mellitus Hyperlipidemia Surgical History Gastric bypass status for obesity Hx of laparoscopic gastric banding Family History Father COPD (chronic obstructive pulmonary disease) Cardiac abnormality No family history of mental disorder Mother No family history of mental disorder Breast cancer Sister No family history of mental disorder Breast cancer Sister No family history of mental disorder Ovarian cancer in remission Social History (Updated 04/21/24 @ 15:39 by Nargis Benjamin CMA) Household Members: Spouse Housing: House Alcohol intake: current Alcohol intake frequency: holidays/special occasions only Alcohol type: wine Patient Tobacco Use Status: Never used Tobacco e-Cigarette/Vaping Use: Never Used Patient : No service: No Current occupational status: employed 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 1. Little interest or pleasure in doing things: several days 2. Feeling down, depressed, or hopeless: not at all 3. Trouble falling or staying asleep, or sleeping too much: several days 4. Feeling tired or having little energy: several days 5. Poor appetite or overeating: several days 6. Feeling bad about yourself - or that you are a failure or have let yourself or your family down: not at all 7. Trouble concentrating on things, such as reading the newspaper or watching television: several days 8. Moving or speaking so slowly that other people could have noticed. Or the opposite - being so fidgety or restless that you have been moving around a lot more than usual: not at all 9. Thoughts that you would be better off or of hurting yourself in some way: not at all Total score: 5 Source: Developed by Drs. Xavi Benitez, Adry Tovar, Andrzej Cross and colleagues, with an educational lenin from [employer]. Thrive Questionnaire Date Thrive assessed: 12/05/23 I am a: Patient What is your living situation today?: I have a steady place to live Within the past 12 months, did the food you bought not last and you didn't have the money to get more?: Never true Within the past 12 months, did you worry whether your food would run out before you got money to buy more?: Never true Do you have trouble paying for medicines?: No Do you have trouble getting transportation to medical appointments?: No Do you have trouble paying your heating and electricity bill?: No Do you have trouble taking care of your child, family member or friend?: No Do you have trouble with day-to-day activities such as bathing, preparing meals, shopping, managing finances, etc.?: No Are you currently unemployed and looking for a job?: No Are you interested in more education?: No Please select the resources that you would like help with: None Currently or been in a relationship where the following occur: No concerns reported THRIVE Score: 0 AUDIT C Alcohol Use Questionnaire (AUDIT-C) 1. How often do you have a drink containing alcohol?: Monthly or less 2. How many drinks containing alcohol do you have on a typical day when you are drinking?: 1 or 2 3. How often do you have six or more drinks on one occasion?: Never Total Score: 1 MELANI-7 AMB Questionnaire MELANI-7 Date MELANI - 7 assessed: 12/05/23 Feeling nervous, anxious, or on edge: 1 = Several days Not being able to stop or control worryin = Not at all Worrying too much about different things: 0 = Not at all Trouble relaxin = Several days Being so restless that it is hard to sit still: 1 = Several days Becoming easily annoyed or irritable: 1 = Several days Feeling afraid as if something awful might happen: 0 = Not at all Total MELANI-7 score (0-4 normal; 5-9 mild; 10-14 moderate; 15-21 severe): 4 Source: Developed by Drs. Xavi Benitez, Adry Tovar, Andrzej Cross and colleagues, with an educational lenin from [employer]. Review of Systems Const Details: Const Denies chills, Denies fatigue, Denies fever(s), Denies headache(s) and Denies we akness ENT Denies dizziness and Denies headache(s) Card Denies chest pain, Reports lightheadedness, Denies dyspnea and Denies other (Palpitations) Resp Denies cough, Denies dyspnea, Denies wheezing and Denies other ( shortness of breath) GI Denies abdominal pain, Denies melena, Denies hematochezia, Denies change in bowel habits, Denies dyspepsia and Denies nausea Denies hematuria and Denies dysuria Musc Denies abnormal gait, Denies myalgias, Denies arthralgias, Denies numbness and Denies tingling Skin/Breast Denies rash, Denies unusual bruising and Denies wounds Neuro Denies abnormal gait, Reports dizziness, Denies headache(s), Denies memory loss, Denies numbness, Denies Sensory deficit (Neuro), Denies tingling and Denies weakness Psych Denies anxiety, Denies depression, Denies memory loss Endo Denies cold intolerance, Denies fatigue, Denies heat intolerance, Denies polydipsia and Denies polyuria Aller/Immun Denies wheezing Physical exam (Primary Care) Vital Signs: Last Vital Signs Temp 97.8 F 10/04/24 15:27 Pulse 71 10/04/24 15:27 Resp 16 10/04/24 15:27 BP 118/76 10/04/24 15:27 Pulse Ox 97 10/04/24 15:27 Oxygen Delivery Method Room Air 10/04/24 15:27 BMI result Body Mass Index 36.1 Tobacco/Smoking Status: Tobacco use Status Tobacco use date assessed 10/04/24 10/04/24 15:34 Patient Tobacco Use Status Never used Tobacco 10/04/24 15:20 e-Cigarette/Vaping Use Never Used 10/04/24 15:20 PHQ-9: PHQ-9 Score PHQ-9: Total score 5 10/04/24 15:20 Thrive Assessment: Date of Thrive Assessment Date Thrive assessed 12/05/23 10/04/24 15:20 Currently or been in a relationship where the following occur: No concerns reported Const Other: General: no acute distress and well developed Nutritional Appearance: well nourished Orientation/consciousness: patient oriented x3 [facility] Head: Yes normocephalic and Yes atraumatic Eyes General: appearance normal, both eyes and all related structures Pupils: Equal, round and reactive pupils present EOM: EOMs intact bilaterally Resp Effort & Inspection: normal respiratory effort Auscultation: clear to auscultation bilaterally Cardio Rate: regular rate Rhythm: regular rhythm Heart sounds: S1 normal heart sound present, S2 normal heart sound present, no gallops, no murmurs and no rubs GI Palpation (GI): No Abdominal aortic bruit present, Soft to palpation, nontender, No hepatosplenomegaly present and No Rebound tenderness present Auscultation: normal bowel sounds General: Yes no CVA tenderness Back/Spine/Pelvis Back: no CVA tenderness Extrem General: Yes normal to inspection, No edema and No calf tenderness Skin General: warm and dry. Normal skin color. Normal skin turgor Neuro General: patient oriented x3, gait normal and no focal neuro deficit Cranial nerves: Yes Equal, round and reactive pupils present Cognition (Neuro): normal cognition Gait exam (Neuro): Normal gait present Sensory Exam: No Sensory deficit (Neuro) Psych Appearance: grossly normal Affect: normal affect Attitude: cooperative Thought process: Normal thought process present Office Procedures EKG Details: T-wave depression at V1, V2, V3, and V4, Cardiac ischemia [id number], Complete Results AMB Hemoglobin A1c AMB Hemoglobin A1c 7.3 % Last Edit by RIVAS Coleman on 10/04/24 17:07 Coding Level of Care Code Est Pt Level 4 (27214) Complex EM visit Add On G2211 Diagnoses Dizziness R42 Lightheadedness R42 Stable angina I20.89 Diabetes mellitus E11.9 Diabetes mellitus type: type 2 Diabetes mellitus complication status: without complication CPT Codes EKG - CPT: 41008-[id number], Complete ([id number]) Assessment & Plan Assessment & Plan (1) Dizziness: Code(s): R42 - Dizziness and giddiness Category: Medical Plan: Patient has been experiencing intermittent lightheadedness, dizziness, and head fog for the past 2-3 weeks Her symptoms have been ongoing intermittently for the 2-3 weeks. She has been experiencing persistent lightheadedness and dizziness which waxes and wanes since 11 am today. She also experiences intermittent shortness of breath and chest tightness only while climbing upstairs. No shortness of breath or chest discomfort at rest. EKG revealed T-wave depression at V1, V2, V3, and V4, likely cardiac ischemia Will check CBC, CMP, troponin, and lipid panel. Will also check chest x-ray. Will check results and make changes as needed Start referral made to Cardiology Blood pressure is normal Encouraged to monitor symptoms, and go to the ED with persistent shortness of breath or chest discomfort with exertion or at rest Follow-up with PCP as needed (2) Lightheadedness: Code(s): R42 - Dizziness and giddiness Category: Medical Plan: Plan as above (3) Stable angina: Code(s): I20.89 - Other forms of angina pectoris Category: Medical Plan: Plan as above (4) Diabetes mellitus: Code(s): E11.9 - Type 2 diabetes mellitus without complications Category: Medical Qualifiers: Diabetes mellitus type: type 2 Diabetes mellitus complication status: without complication Plan: She is diet controlled diabetes but has not follow-up in a while. Her last A1c on 12/24/23 was 6.6% A1c today is 7.3%, above goal of less than 7.0% Will start metformin 500 mg daily. Advised to take as prescribed. Instructed on the risks, benefits, and potential adverse reactions of the medication ADA diet and routine exercise encouraged Will recheck A1c in 3 months Verbalized understanding and agreed with the treatment plan Orders: Orders Complete Blood Count Auto Diff Today R42 - Dizziness and giddiness Troponin-I High Sensitivity Today I20.89 - Other forms of angina pectoris AMB EKG-In Office Today I20.89 - Other forms of angina pectoris AMB Hemoglobin A1c Today Z13.9 - Encounter for screening, unspecified Comprehensive [place]. Panel Fast Today R42 - Dizziness and giddiness XR chest 2V Today I20.89 - Other forms of angina pectoris Lipid Panel Today I20.89 - Other forms of angina pectoris Referrals Cardiology Referral I20.89 - Other forms of angina pectoris Medications: New metformin 500 mg PO DAILY 30 days 30 tabs 3RF Refilled citalopram 40 mg PO QAM 30 days 30 tabs 3RF
[2024-10-04 15:27] VITALS: BP 118/76; PULSE 71; RESP 16; TEMP 36.6; O2SAT 97; BMI 36.1
== END 2024-10-04 17:04 | disposition home or self-care (01) ==
LOC: HO.HMCFM 15:17
PROVIDERS: PCP Nurse Practitioner Family; Visit Provider Nurse Practitioner Family
DX: R42 Dizziness and giddiness (principal); I20.89 Other forms of angina pectoris; E11.9 Type 2 diabetes mellitus without complications; Z13.9 Encounter for screening, unspecified

== ENCOUNTER → 2024-10-04 15:16 | Outpatient (BNVA) | payer BC, SELFPAY | PROVIDERS: PCP Nurse Practitioner Family; Visit Provider Nurse Practitioner Family | DX: R42 Dizziness and giddiness (principal); I20.89 Other forms of angina pectoris; E11.9 Type 2 diabetes mellitus without complications | CPT/HCPCS: 83036; 93005; 96127 ==

== ENCOUNTER 2024-10-05 08:10 | Outpatient (REF) | payer OTHER, SELFPAY ==
--- NOTE | ~2024-10-05 | XR_ITS ---
EXAMINATION: XR CHEST CLINICAL INFORMATION: Other forms of angina pectoris, pain in chest and shortness of breath for 2 months. COMPARISON: None available. TECHNIQUE: 2 views of the chest were obtained. FINDINGS: Dextroscoliosis of the thoracic spine with moderate multilevel degenerative changes. There is no significant pneumothorax. No gross pleural effusion. Cardiac silhouette is borderline enlarged. No focal consolidation to suggest pneumonia. XR/XR chest 2V IMPRESSION: Cardiac silhouette borderline enlarged. No focal consolidation to suggest pneumonia. This study was presented today 10/05/2024 for interpretation. Stat results provided at this time as requested by referring provider. Electronically signed by: Michelle Scales MD 10/05/2024 10:40 AM MARY
[2024-10-05 08:26] LABS: MANUAL DIFF FLAG NO
[2024-10-05 08:58] LABS: Basophils Percent Auto 0.6 % (0-2); Eosinophils Absolute Auto 0.1 X10*3/uL (0.0-0.4); Eosinophils Percent Auto 2.8 % (0-4); Hematocrit 39.3 % (37.0-47.0); Hemoglobin 12.8 g/dl (12.0-16.0); Imm Gran Abs Auto 0.01 X10*3/uL (0.00-0.03); Imm Gran Pct Auto 0.2 % (0.0-0.4); Lymphocytes Absolute Auto 2.2 X10*3/uL (1.2-4.9); Lymphocytes Percent Auto 43.5 % (20-40); Mean Corpuscular HGB Conc 32.6 g/dl (31.0-35.0); Mean Corpuscular Volume 89.1 fL (80.0-98.0); Mean Platelet Volume 9.6 fL (9.4-12.3); Monocytes Absolute Auto 0.2 X10*3/uL (0.1-1.2); Monocytes Percent Auto 4.8 % (2-11); Neutrophils Absolute Auto 2.4 x10*3/uL (2.0-8.3); Neutrophils Percent Auto 48.1 % (45-73); Platelet Count 247 X10*3/uL (160-400); Red Blood Count 4.41 X10*6/uL (4.20-5.50); Red Cell Distribution Width 13.2 % (11.0-16.0)
[2024-10-05 09:33] LABS: Troponin-I High Sensitivity < 2.7 ng/L (<3.5-17.0)
[2024-10-05 09:36] LABS: Alanine Aminotransferase 16 U/L (0-31); Alkaline Phosphatase 92 U/L (39-117); Anion Gap 10 (12-20); Aspartate Amino Transferase 25 U/L (5-31); Bilirubin Total 0.5 mg/dL (0.0-1.0); Blood Urea Nitrogen 11 mg/dL (9-16); Calcium 9.1 mg/dL (8.4-10.2); Carbon Dioxide 31 mmol/L (22-29); Chloride 105 mmol/L (96-108); Cholesterol 228 mg/dL (<200); Estimated Glomerular Filt Rate > 60; Glucose Fasting 136 mg/dL (60-99); HDL Cholesterol 30 mg/dL (>40); LDL Cholesterol Calculated 163 mg/dL (<100); Potassium 4.5 mmol/L (3.3-5.1); Sodium 141 mmol/L (135-145); Total Protein 7.3 g/dL (6.5-8.0); Triglycerides 179 mg/dL (<150)
== END 2024-10-05 08:11 | disposition home or self-care (01) ==
LOC: HO.LAB 08:10
PROVIDERS: PCP Nurse Practitioner Family; Visit Provider Nurse Practitioner Family
DX: R42 Dizziness and giddiness (principal); I20.89 Other forms of angina pectoris
CPT/HCPCS: 36415; 71046; 80053; 80061; 84484; 85025

== ENCOUNTER → 2024-10-14 14:48 | Outpatient (REF) | payer OTHER, SELFPAY ==
--- NOTE | 2024-10-14 14:54 | CA_ITS ---
Transthoracic Echocardiogram Patient (Last, First, Middle): Sondra Colmenares, Gender: Female Date of : 1965 Age: 58 Procedure Date: 10/14/2024 Procedure Type: Transthoracic Echocardiogram Location: OP Height: 165.1 cm Weight: 95.26 kg BSA: 2.02 m2 Heart Rate: bpm BP: 106 / 64 mmHg Customer Security Clerk: LILLY Referring MD: Catrachito Hagen CNP Moisture Meter Operator: Junior Beltre MD Symptoms: I20.89 - Other forms of angina pectoris Study Quality: Fair ECG Rhythm: Sinus Conclusions: - Essentially normal study Findings Left Ventricle Normal left ventricular size, thickness, and systolic function. The visually estimated ejection fraction is between 60-65%. Spectral Doppler is indicative of a normal filling pattern. Right Ventricle Normal right ventricular cavity size and systolic function. Atria Both atria are normal in size. Interatrial shunt cannot be excluded. Aortic Valve The aortic valve structure and function is likely normal. There is no aortic valve stenosis. There is no aortic valve regurgitation. Mitral Valve Likely normal mitral valve structure and function. There is trace mitral valve regurgitation. There is no mitral valve stenosis. Pulmonic Valve The pulmonic valve was not well visualized. Tricuspid Valve Likely normal tricuspid valve structure and function. There is trace tricuspid valve regurgitation. The right ventricular systolic pressure is normal. The right ventricular systolic pressure is 20 mmHg. Normal right atrial pressure. There is no evidence of pulmonary hypertension. Great Vessels The aorta was not well visualized. The pulmonary artery was not well visualized. There is no dilatation of the ascending aorta measuring 3.00 cm. Venous The inferior vena cava is normal in size and collapses greater than 50% with inspiration. Pericardium/Pleural The pericardium was not well visualized. Prior Study Comparison No prior study available for comparison. Measurements 2D Linear Measurements IVSd: 0.71 0.6-0.9/0.6-1.0 cm LVIDd: 5.42 3.9-5.3/4.2-5.9 cm LVIDd Index: 2.68 2.4-3.2/2.2-3.1 cm/m2 LVIDs: 3.63 2.0-3.6 cm LVPWd: 0.73 0.7-1.1 cm LA Diam: 3.90 2.7-3.8/3.0-4.0 cm LAIDs Index: 1.93 1.5-2.3 cm/m2 LV Mass: 170.01 67-162/88-224 g LV Mass Index: 84.16 43-95/49-115 g/m2 LVOT Diam: 1.90 3.0+(-)1.3 cm 2D Systolic Function EF 4C: 68.50 >55% EF 2C: 60.40 >55% EF BiP: 65.50 >55% Mitral Valve MV Pk E: 0.96 MV PK A: 0.76 MV Decel Time: 246.00 E/A: 1.30 E'Lateral: 10.80 E'Medial: 7.07 E/E' Med: 13.60 E/E' Lat: 8.90 PHT: 72.00 MVA PHT: 3.06 Decel [place]: 3.92 Aortic Valve AoV Pk Clint: 1.93 AoV Mn Clint: 1.34 AoV VTI: 0.52 AoV Pk Grad: 15.00 Aov Mn Grad: 8.00 EDMAR Cont.VTI: 1.52 LVOT LVOT Pk Clint: 0.98 LVOT Mn Clint: 0.66 LVOT VTI: 0.28 LVOT Pk Grad: 4.00 LVOT Mn Grad: 2.00 LVOT Diam: 1.90 LVOT Area: 2.84 Diastolic Function MV Pk E: 0.96 MV Pk A: 0.76 E/A: 1.30 E'Medial: 7.07 E/E' Med: 13.60 E' Laterial: 10.80 E/E' Lat: 8.90 Right Ventricle TAPSE (mm): 26.30 TVS' Clint: 10.90 Tricuspid Valve TR Pk Clint: 2.05 TR Pk Grad: 17.00 RA Press: 3.00 RVSP: 20.00 Great Vessels Aorta Sinus of Valsalva: 2.85 2.0-3.[address] [place]: 2.29 1.7-3.4 cm Ao Asc: 3.00 2.1-3.4 cm Ao Arch: 2.50 Updated in Other Vendor System with Status of Final Junior Beltre MD electronically signed on 10/15/2024 8:34:51 AM with status of Final
== END ==
LOC: HO.CARD 14:48
PROVIDERS: PCP Nurse Practitioner Family; Visit Provider Nurse Practitioner Family
DX: I20.89 Other forms of angina pectoris (principal)
CPT/HCPCS: 93306

== ENCOUNTER → 2024-10-14 14:54 | Outpatient (BNV) | payer OTHER, SELFPAY | PROVIDERS: PCP Nurse Practitioner Family; Visit Provider Internal Medicine Cardiovascular Disease | DX: I20.89 Other forms of angina pectoris (principal) | CPT/HCPCS: 93306 ==

== ENCOUNTER 2024-11-13 07:46 | Outpatient (REF) | payer OTHER, SELFPAY ==
[2024-11-13 09:10] LABS: Cholesterol 130 mg/dL (<200); HDL Cholesterol 31 mg/dL (>40); LDL Cholesterol Calculated 75 mg/dL (<100); Triglycerides 122 mg/dL (<150)
[2024-11-13 09:28] LABS: TSH reflex Free T4 3.07 uIU/mL (0.32-4.0)
== END 2024-11-13 07:47 | disposition home or self-care (01) ==
LOC: HO.LAB 07:46
PROVIDERS: PCP Nurse Practitioner Family; Visit Provider Nurse Practitioner Family
DX: I20.89 Other forms of angina pectoris (principal); E78.5 Hyperlipidemia, unspecified
CPT/HCPCS: 36415; 80061; 84443

== ENCOUNTER 2024-11-17 14:55 | Outpatient (AMB) | payer OTHER, SELFPAY ==
--- NOTE | 2024-11-17 14:56 | A.OFFPC_ITS ---
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 She admits to taking her medications as prescribed without adverse reactions. She has been making healthy lifestyle changes. She offers no complaints and denies acute symptoms at this time. [facility] Medical History (Updated 11/17/24 @ 15:33 by Catrachito Hagen CNP) Depression Anxiety Diabetes mellitus Hyperlipidemia Surgical History Gastric bypass status for obesity Hx of laparoscopic gastric banding Family History Father COPD (chronic obstructive pulmonary disease) Cardiac abnormality No family history of mental disorder Mother No family history of mental disorder Breast cancer Sister No family history of mental disorder Breast cancer Sister No family history of mental disorder Ovarian cancer in remission Social History (Updated 04/21/24 @ 15:39 by Nargis Benjamin CMA) Household Members: Spouse Housing: House Alcohol intake: current Alcohol intake frequency: holidays/special occasions only Alcohol type: wine Patient Tobacco Use Status: Never used Tobacco e-Cigarette/Vaping Use: Never Used service: No Current occupational status: employed 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 1. Little interest or pleasure in doing things: not at all 2. Feeling down, depressed, or hopeless: not at all 3. Trouble falling or staying asleep, or sleeping too much: more than half the days 4. Feeling tired or having little energy: more than half the days 5. Poor appetite or overeating: several days 6. Feeling bad about yourself - or that you are a failure or have let yourself or your family down: not at all 7. Trouble concentrating on things, such as reading the newspaper or watching television: several days 8. Moving or speaking so slowly that other people could have noticed. Or the o pposite - being so fidgety or restless that you have been moving around a lot more than usual: not at all 9. Thoughts that you would be better off or of hurting yourself in some way: not at all Total score: 6 29875 - PHQ-9 Billing: Patient declined-do not bill Source: Developed by Drs. Xavi Benitez, Adry Tovar, Andrzej Cross and colleagues, with an educational lenin from [employer]. Thrive Questionnaire Date Thrive assessed: 11/17/24 I am a: Patient What is your living situation today?: I have a steady place to live Within the past 12 months, did the food you bought not last and you didn't have the money to get more?: Never true Within the past 12 months, did you worry whether your food would run out before you got money to buy more?: Never true Do you have trouble paying for medicines?: No Do you have trouble getting transportation to medical appointments?: No Do you have trouble paying your heating and electricity bill?: No Do you have trouble taking care of your child, family member or friend?: No Do you have trouble with day-to-day activities such as bathing, preparing meals, shopping, managing finances, etc.?: No Are you currently unemployed and looking for a job?: No Are you interested in more education?: No Please select the resources that you would like help with: None Currently or been in a relationship where the following occur: No concerns reported THRIVE Score: 0 MELANI-7 AMB Questionnaire MELANI-7 Date MELANI - 7 assessed: 11/17/24 Feeling nervous, anxious, or on edge: 0 = Not at all Not being able to stop or control worryin = Not at all Worrying too much about different things: 0 = Not at all Trouble relaxin = Not at all Being so restless that it is hard to sit still: 0 = Not at all Becoming easily annoyed or irritable: 0 = Not at all Feeling afraid as if something awful might happen: 0 = Not at all Total MELANI-7 score (0-4 normal; 5-9 mild; 10-14 moderate; 15-21 severe): 0 Source: Developed by Drs. Xavi Benitez, Adry Tovar, Andrzej Cross and colleagues, with an educational lenin from [employer]. MELANI-7 Assessment Billing MELANI-7 Assessment Tool: MELANI-7 Assessment 71697 Review of Systems Const Details: Const Denies chills, Denies fatigue, Denies fever(s), Denies headache(s) and Denies w eakness ENT Denies dizziness and Denies headache(s) Card Denies chest pain, Denies lightheadedness, Denies dyspnea and Denies other (Palpitations) Resp Denies cough, Denies dyspnea, Denies wheezing and Denies other ( shortness of breath) GI Denies abdominal pain, Denies melena, Denies hematochezia, Denies change in bowel habits, Denies dyspepsia and Denies nausea Denies hematuria and Denies dysuria Musc Denies abnormal gait, Denies myalgias, Denies arthralgias, Denies numbness and Denies tingling Skin/Breast Denies rash, Denies unusual bruising and Denies wounds Neuro Denies abnormal gait, Denies dizziness, Denies headache(s), Denies memory loss, Denies numbness, Denies Sensory deficit (Neuro), Denies tingling and Denies weakness Psych Denies anxiety, Denies depression, Denies memory loss Endo Denies cold intolerance, Denies fatigue, Denies heat intolerance, Denies polydipsia and Denies polyuria Aller/Immun Denies wheezing Physical exam (Primary Care) Vital Signs: Last Vital Signs Temp 96.8 F 11/17/24 14:59 Pulse 93 11/17/24 14:59 Resp 12 11/17/24 14:59 BP 122/58 L 11/17/24 14:59 Pulse Ox 98 11/17/24 14:59 Oxygen Delivery Method Room Air 11/17/24 14:59 BMI result Body Mass Index 36.0 Tobacco/Smoking Status: Tobacco use Status Tobacco use date assessed 10/04/24 11/17/24 15:01 Patient Tobacco Use Status Never used Tobacco 11/17/24 15:01 e-Cigarette/Vaping Use Never Used 11/17/24 15:01 Thrive Assessment: Date of Thrive Assessment Date Thrive assessed 11/17/24 11/17/24 15:01 Currently or been in a relationship where the following occur: No concerns reported Const Other: General: no acute distress and well developed Nutritional Appearance: well nourished Orientation/consciousness: patient oriented x3 HENMT Head: Yes normocephalic and Yes atraumatic Eyes General: appearance normal, both eyes and all related structures Pupils: Equal, round and reactive pupils present EOM: EOMs intact bilaterally Resp Effort & Inspection: normal respiratory effort Auscultation: clear to auscultation bilaterally Cardio Rate: regular rate Rhythm: regular rhythm Heart sounds: S1 normal heart sound present, S2 normal heart sound present, no gallops, no murmurs and no rubs GI Palpation (GI): No Abdominal aortic bruit present, Soft to palpation, nontender, No hepatosplenomegaly present and No Rebound tenderness present Auscultation: normal bowel sounds General: Yes no CVA tenderness Back/Spine/Pelvis Back: no CVA tenderness Cervical Spine: cervical ROM normal and No Cervical spine tenderness Thoracic/Lumbar Spine: thoraco-lumbar ROM normal, No pain with thoraco-lumbar ROM, No thoracic spinal tenderness and No lumbar spinal tenderness Extrem General: Yes normal to inspection, No edema and No calf tenderness Skin General: warm and dry. Normal skin color. Normal skin turgor Neuro General: patient oriented x3, gait normal and no focal neuro deficit Cranial nerves: Yes Equal, round and reactive pupils present Cognition (Neuro): normal cognition Gait exam (Neuro): Normal gait present Sensory Exam: No Sensory deficit (Neuro) Psych Appearance: grossly normal Affect: normal affect Attitude: cooperative Thought process: Normal thought process present Coding Level of Care Code Est Pt Level 3 (70482) Diagnoses Hyperlipidemia E78.5 Anxiety F41.9 Depression F32.A Additional Codes MELANI-7 Assessment Billing - MELANI-7 Assessment Tool: MELANI-7 Assessment 27984 ([id number]) Assessment & Plan Assessment & Plan (1) Hyperlipidemia: Code(s): E78.5 - Hyperlipidemia, unspecified Category: Medical Plan: Recent lipid panel level is normal except for low HDL, 31. LDL level is 75, within goal of less than 100. Continue current treatment regimen. Advised to fast for 10-12 hours, may drink water, and get lipid panel blood work done 2-3 d ays before next visit. Follow-up in 2 months for diabetes, hyperlipidemia, anxiety, and depression. Return sooner with symptoms or concerns. Verbalized understanding and agreed with treatment plan. (2) Anxiety: Code(s): F41.9 - Anxiety disorder, unspecified Category: Medical Plan: Controlled anxiety and depressive symptoms. Continue current treatment regimen. Follow-up in 2 months or sooner with symptoms or concerns. Verbalized understa nding and agreed with the plan. (3) Depression: Code(s): F32.A - Depression, unspecified Category: Medical Plan: Plan as above. Orders: Orders Lipid Panel 2 Months E78.5 - Hyperlipidemia, unspecified
[2024-11-17 14:59] VITALS: BP 122/58; PULSE 93; RESP 12; TEMP 36; O2SAT 98; BMI 36.0
[2024-11-17 15:24] VITALS: BP 100/68
== END 2024-11-17 15:34 | disposition home or self-care (01) ==
PROVIDERS: PCP Nurse Practitioner Family; Visit Provider Nurse Practitioner Family
DX: E78.5 Hyperlipidemia, unspecified (principal); F41.9 Anxiety disorder, unspecified; F32.A Depression, unspecified

== ENCOUNTER → 2024-11-17 14:55 | Outpatient (BNVA) | payer OTHER, SELFPAY | PROVIDERS: PCP Nurse Practitioner Family; Visit Provider Nurse Practitioner Family | DX: E78.5 Hyperlipidemia, unspecified (principal); F41.9 Anxiety disorder, unspecified; F32.A Depression, unspecified | CPT/HCPCS: 96127 ==

== ENCOUNTER 2024-12-14 14:53 | Outpatient (AMB) | payer OTHER, SELFPAY ==
--- NOTE | 2024-12-14 14:57 | A.OFFVIS_ITS ---
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 She states that for the last few months, she has been noticing exertional chest discomfort. She points to the area in between the breasts. 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 After resting, it gets better. Some left arm discomfort but not clear if it is part of the same problem or not. No previous diagnosis of coronary disease or myocardial infarction or cardiomyopathy. She is on the overweight side. Previously, has undergone bariatric surgery. Other risk factors include diabetes and dyslipidemia. Apparently father also had cardiac issues in his 40s and hence she is concerned if there is an issue with her as well. [facility] Medical History (Updated 12/14/24 @ 15:18 by Mazin Abebe MD) Depression Anxiety Diabetes mellitus Hyperlipidemia Surgical History Gastric bypass status for obesity Hx of laparoscopic gastric banding Family History Father COPD (chronic obstructive pulmonary disease) Cardiac abnormality No family history of mental disorder Mother No family history of mental disorder Breast cancer Sister No family history of mental disorder Breast cancer Sister No family history of mental disorder Ovarian cancer in remission Social History Household Members: Spouse Housing: House Alcohol intake: current Alcohol intake frequency: holidays/special occasions only Alcohol type: wine Patient Tobacco Use Status: Never used Tobacco e-Cigarette/Vaping Use: Never Used service: No Current occupational status: employed 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 Sexual orientation: Straight/Heterosexual Gender identity: Female Cognitive needs: No Hearing needs: Yes Vision needs: Yes Review of Systems Const Denies chills, Denies fatigue, Denies fever(s), Denies frequent falls, Denies weakness, Denies weight gain and Denies weight loss ENT Reports dizziness Card Reports chest pain, Reports chest pain at rest, Reports chest pain with activity, Denies leg edema, Reports lightheadedness, Denies palpitations, Reports dyspnea, Reports dyspnea on exertion and Reports orthopnea Resp Denies cough, Reports dyspnea and Reports dyspnea on exertion GI Denies bloating and Denies change in bowel habits Musc Denies muscle weakness, Denies numbness and Denies tingling Neuro Reports dizziness, Denies frequent falls, Denies numbness, Denies tingling and Denies weakness Endo Denies fatigue and Denies palpitations Physical Exam Vital Signs: Last Vital Signs Pulse 70 12/14/24 14:58 BP 100/64 12/14/24 14:58 BMI result Body Mass Index 36.0 Const General: comfortable and no acute distress Orientation/consciousness: patient oriented x3 HEENT Other: Unremarkable Head: Yes normal to inspection Neck Neck: Yes normal visual inspection Chest Chest palpation & inspection: normal inspection of the chest Resp Auscultation: clear to auscultation bilaterally Cardio Palpation: normal PMI Heart sounds: S1 normal heart sound present, S2 normal heart sound present, no gallops, Murmur heart sound present systolic II/ and at the right sternal border and no rubs GI Palpation (GI): Soft to palpation Back/Spine/Pelvis Other: unremarkable Skin General skin exam: no rashes or lesions noted Neuro General: patient oriented x3 Extrem General: Yes normal to inspection Psych Mental Status: mental status grossly normal Office Procedures EKG Details: In the EKG, there is underlying sinus rhythm, 70/Min; likely T inversions in leads V1/V2 but there is also some artifact. Normal NC. Corrected QT is slightly prolonged at 481 milliseconds. [id number], Complete Assessment & Plan Assessment & Plan (1) Exertional chest pain: Code(s): R07.9 - Chest pain, unspecified Category: Medical Plan Exertional chest discomfort with multiple risk factors. On clinical exam, aortic sclerosis/stenosis type murmur. However, on the echocardiogram reported as normal study -but looking at the measurements, mean gradient across aortic valve was 8 mm Hg, peak 15 mm Hg and calculated valve area was 1.5 sq cm. Hence could have mild . We discussed about different modalities for ischemic workup including exercise stress perfusion study, coronary CTA as well as diagnostic catheterization and the potential timing for these. As there is large delays in getting noninvasive testing and also her symptoms are fairly classical, we will proceed with an invasive angiogram. Procedure itself was discussed in detail and she agrees. We will schedule this in the next few days. In the interim, avoid any strenuous physical activity. If any worsening chest pain or any other major concerns from now till the timing of angiogram, then seek emergency help. Start low-dose aspirin. She is already on statins. Blood pressure is too low to start beta-blockers or long-acting nitrates but she can take nitroglycerin as needed for chest pains. Orders: Orders Basic Metabolic Panel Today R07.9 - Chest pain, unspecified Complete Blood Count no Diff Today R07.9 - Chest pain, unspecified Prothrombin Time INR Today R07.9 - Chest pain, unspecified Cardiac Cath LT Diagnostic Today I25.10 - Atherosclerotic heart disease of [place] coronary artery without angina pectoris, R07.9 - Chest pain, unspecified Medications: New nitroglycerin do not exceed 3 doses per episode 0.4 mg sublingual Q5M PRN 30 tabs 5RF chest pain R07.2 - Precordial pain Coding Level of Care Code New Pt Level 5 (46234) Diagnoses Exertional chest pain R07.9 CPT Codes EKG - CPT: 05801-[id number], Complete ([id number])
[2024-12-14 14:58] VITALS: BP 100/64; PULSE 70; BMI 36.0
== END 2024-12-14 16:05 | disposition home or self-care (01) ==
PROVIDERS: PCP Nurse Practitioner Family; Visit Provider Internal Medicine
DX: R07.9 Chest pain, unspecified (principal)
CPT/HCPCS: 93010; 99204

== ENCOUNTER 2024-12-14 14:53 | Outpatient (REF) | payer OTHER, SELFPAY ==
[2024-12-14 16:16] LABS: Hematocrit 37.5 % (37.0-47.0); Hemoglobin 12.1 g/dl (12.0-16.0); Mean Corpuscular HGB Conc 32.3 g/dl (31.0-35.0); Mean Corpuscular Hemoglobin 28.5 pg (27.0-33.0); Mean Corpuscular Volume 88.4 fL (80.0-98.0); Mean Platelet Volume 9.7 fL (9.4-12.3); Platelet Count 258 X10*3/uL (160-400); Red Blood Count 4.24 X10*6/uL (4.20-5.50); Red Cell Distribution Width 13.7 % (11.0-16.0); White Blood Count 6.8 X10*3/uL (4.8-10.8)
[2024-12-14 16:22] LABS: Prothrombin Time 11.2 SEC (10.9-12.4)
[2024-12-14 17:03] LABS: Anion Gap 9 (12-20); Blood Urea Nitrogen 16 mg/dL (9-16); Calcium 8.7 mg/dL (8.4-10.2); Carbon Dioxide 31 mmol/L (22-29); Chloride 107 mmol/L (96-108); Estimated Glomerular Filt Rate 55; Glucose Random 112 mg/dL (60-115); Potassium 4.8 mmol/L (3.3-5.1); Sodium 142 mmol/L (135-145)
== END 2024-12-14 14:54 | disposition home or self-care (01) ==
LOC: HO.LAB 14:53
PROVIDERS: PCP Nurse Practitioner Family; Visit Provider Internal Medicine
DX: R07.9 Chest pain, unspecified (principal)
CPT/HCPCS: 36415; 80048; 85027; 85610; 93005

== ENCOUNTER → 2024-12-28 23:59 | Outpatient (BNV) | payer OTHER, SELFPAY | PROVIDERS: PCP Nurse Practitioner Family; Visit Provider Internal Medicine Cardiovascular Disease | DX: I20.89 Other forms of angina pectoris (principal) | CPT/HCPCS: 93458; 99152 ==

== ENCOUNTER 2025-01-12 12:45 | Outpatient (AMB) | payer OTHER, SELFPAY ==
[2025-01-12 12:53] VITALS: BP 112/64; PULSE 82; BMI 35.6
--- NOTE | 2025-01-12 12:53 | A.OFFVIS_ITS ---
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 Patient with a history of diabetes and hyperlipidemia otherwise no coronary artery disease, ischemic disease, or cardiomyopathy. She was recently seen in the office for chest discomfort, which led to a cardiac catheterization. Today, she reports experiencing chest pain both with exertion and at rest, including when lying down, accompanied by shortness of breath. The patient also mentions feeling unusually fatigued and sleepy throughout the day. Additionally, she notes occasional episodes of heart racing. Patient otherwise is denying any symptoms of orthopnea, PND, leg edema, dizziness, presyncope, or syncope. Her has been accompanied her to the appointment and reports she has episodes of apnea and snores loudly at night. [facility] Medical History Depression Anxiety Diabetes mellitus Hyperlipidemia Surgical History History of cardiac cath Gastric bypass status for obesity Hx of laparoscopic gastric banding Family History Father COPD (chronic obstructive pulmonary disease) Cardiac abnormality No family history of mental disorder Mother No family history of mental disorder Breast cancer Sister No family history of mental disorder Breast cancer Sister No family history of mental disorder Ovarian cancer in remission Social History Household Members: Spouse Housing: House Alcohol intake: current Alcohol intake frequency: holidays/special occasions only Alcohol type: wine Patient Tobacco Use Status: Never used Tobacco e-Cigarette/Vaping Use: Never Used service: No Current occupational status: employed 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 Sexual orientation: Straight/Heterosexual Gender identity: Female Cognitive needs: No Hearing needs: Yes Vision needs: Yes Review of Systems Const Denies chills, Denies fatigue, Denies fever(s), Denies weight gain and Denies weight loss ENT Denies dizziness Card Reports chest pain, Denies leg edema, Denies lightheadedness, Denies palpitations, Reports dyspnea on exertion, Denies orthopnea and Denies other Resp Denies cough and Reports dyspnea on exertion GI Denies hematochezia and Denies change in stool character Musc Denies abnormal gait, Denies muscle weakness, Denies numbness, Denies radiating pain into limb and Denies tingling Neuro Denies abnormal gait, Denies dizziness, Denies numbness and Denies tingling Endo Denies fatigue and Denies palpitations Physical Exam Vital Signs: Last Vital Signs Pulse 82 01/12/25 12:53 BP 112/64 01/12/25 12:53 BMI result Body Mass Index 35.6 Const General: cooperative, healthy appearing, comfortable and no acute distress Orientation/consciousness: patient oriented x3 HEENT Head: Yes normal to inspection Neck Neck: Yes normal visual inspection, Yes trachea midline and Yes supple Chest Chest palpation & inspection: normal inspection of the chest Resp Effort & Inspection: normal respiratory effort Auscultation: clear to auscultation bilaterally, no crackles, no rales, no rhonchi and no wheezes Cardio Jugular venous distension: no JVD Palpation: normal PMI Rate: regular rate Rhythm: regular rhythm Heart sounds: S1 normal heart sound present, S2 normal heart sound present, no click, no gallops, no murmurs and no rubs Peripheral pulses: Peripheral pulses 2+ throughout GI Inspection: Yes normal to inspection Palpation (GI): Soft to palpation Auscultation: normal bowel sounds Skin General skin exam: no rashes or lesions noted Neuro General: patient oriented x3 Extrem General: Yes normal to inspection, No no pedal edema and No calf tenderness Psych Appearance: grossly normal Mental Status: mental status grossly normal Speech and movement: Normal speech and movement present Assessment & Plan Assessment & Plan (1) Exertional chest pain: Code(s): R07.9 - Chest pain, unspecified Category: Medical Plan: 12/28/2024- cardiac catheterization showed no coronary artery disease. Most recent LDL at 75, ideally goal less than 100. Continue statin therapy. (2) Dyspnea: Code(s): R06.00 - Dyspnea, unspecified Category: Medical Plan: 10/14/2024-echo showed normal EF 60-65%. Trace mitral and tricuspid valve regurgitation. Given the continued reports of shortness of breath, we will order a pulmonary function test. Depending on the results referral for pulmonary medicine maybe needed. Stop Bang score of 4, we will order a home sleep study to assess for sleep apnea. (3) Palpitations: Code(s): R00.2 - Palpitations Category: Medical Plan: With reports of palpitations, we will get a Holter monitor to assess for any potential life-threatening arrhythmia. Patient will follow-up after completion of test. The interim, patient will call us with any concerns. Advised to seek ER care in case of exertional chest pain not resolved with rest. This note was generated using voice recognition software. While every effort has been made to ensure accuracy and proper criminal justice lawyer, there may be occasional errors that could affect the content or meaning of the described symptoms. Orders: Orders PFT pulmonary function test Today R06.00 - Dyspnea, unspecified RT home sleep study Today G47.30 - Sleep apnea, unspecified ECG 3 day holter monitor Today R00.2 - Palpitations Coding Level of Care Code Est Pt Level 4 (51182) Diagnoses Exertional chest pain R07.9 Dyspnea R06.00 Palpitations R00.2 Time Spent (min) 31 Comment Time spent in reviewing the chart, test results, assessment, counseling and documentation.
--- OUTSIDE RECORDS SUMMARY | 2025-01-12 14:07 | XMS_ITS | Clinical Summary ---
Author Organization [facility] it Address [address] [place] [address] Care Team Providers Care Apartment Maintenance Name Role Phone Monique Almaguer MD Primary Care Provider [phone] Allergies No known active allergies Medications citalopram (CeleXA) 40 mg tablet Take 1 tablet (40 mg total) by mouth 1 (one) time each day in the morning. 2 Active hydrOXYzine HCL (ATARAX) 25 mg tablet Take 1 tablet by mouth every 8 hours as needed for Anxiety (insomnia). 2 Active SUMAtriptan (IMITREX) 50 mg tablet Take 1 tab for severe headache. May repeat dose once after 2 hours, if needed. Max dose daily= 2 tabs 2 Active OneTouch Ultra Test test strip Use 1 strip to check BS three times a day 9 Active lancets lancets Use to check BS daily 8 Active albuterol HFA (PROAIR HFA ; PROVENTIL HFA ; VENTOLIN HFA) 90 mcg/actuation inhaler Inhale 2 Puffs into the lungs every 4 hours as needed for Cough, Wheezing or Shortness of Breath. 8 Active Active Problems Problem Noted Date Diagnosed Date Hyperlipidemia 12/05/2024 Microalbuminuria 08/30/2022 Type II diabetes mellitus with renal manifestati ons 08/30/2022 COVID-19 06/29/2021 Overview (12/05/2024): January 2021 Intestinal malabsorption following gastrectomy 1 Obesity (BMI 30.0-34.9) 09/02/2019 Overview (12/05/2024): s/p sleeve gastrectomy (May 2019) GERD (gastroesophageal reflux disease) 9 Overview (12/05/2024): Mild Type 2 diabetes mellitus with obesity 07/30/2018 Positive ROMI (antinuclear antibody) 02/11/2018 Depression 04/02/2016 Generalized anxiety disorder 04/02/2016 Immunizations Name Administration Dates Next Due Influenza Quadravalent, MDCK , 0.5ml, preservative free (Flucelvax) 6mo and older 12/12/2021,08/11/2019 Influenza trivalent, with pr eservative (Fluzone; Afluria) 6mo and older 11/18/2020,08/09/2018,08/27/2016 Pneumococcal polysaccharide 23 valent (Pneumovax 23) 2yo and older 07/30/2018 Tdap Tetanus diptheria acell ular pertussis (Boostrix; Adacel) 7yo and older 01/02/2018 Surgical History Surgery Date Site/Laterality Comments SECTION PROCEDURE: HISTORICAL ; COMMENT: x3 LAPAROSCOPIC GASTRIC BANDING 2009 PROCEDURE: LAP ADJUSTABLE GASTRIC BAND TUBAL LIGATION PROCEDURE: HISTORICAL TUBAL LIGATION; COMMENT: with last COLONOSCOPY 2012 PROCEDURE: HISTORICAL COLONOSCOPY; COMMENT: at [facility]; f/u 10 yrs Medical History Medical History Date Comments Depression DX:Depression Hyperlipidemia DX:Hyperlipidemi a Vitamin D deficiency 04/29/2019 DX:Vitamin D deficiency GERD (gastroesophageal reflu x disease) 04/29/2019 DX:GERD (gastroesophageal re flux disease); COMMENT: Mild At high risk for breast cancer 08/14/2017 D X:At high risk for breast cancer Controlled type 2 diabetes m ellitus without complication, without long-term current use of insulin ([facility]) 07/30/2018 DX:Controlled type 2 diabete s mellitus without complication, without long-term current use of insulin ([facility]) Generalized anxiety disorder 04/02/2016 DX: Generalized anxiety disorder Other complications of gastr ic band procedure 09/28/2018 DX:Other complications of ga stric band procedure Positive ROMI (antinuclear antibody) 02/11/2018 DX:Positive ROMI (antinuclear antibody) Class 2 severe obesity due t o excess calories with serious comorbidity and body mass index (BMI) of 35.0 to 35.9 in adult ([facility]) 09/28/2018 DX:Class 2 severe obesity du e to excess calories with serious comorbidity and body mass index (BMI) of 35.0 to 35.9 in adult ([facility]); COMMENT: Diabetes, Hyperlipidemia Family History Medical History Relation Name Comments Cataracts Father Breast cancer Mother Colon cancer Mother's side uncle Breast cancer Sister 1 half sister, s stanislaw mother Ovarian cancer Sister 2 at 28 Uterine cancer Neg Hx Relation Name Status Comments Father Mother Mother's side Sister 1 Sister 2 Social History Tobacco Use Types Packs/Day Years Used Date Smoking Tobacco: Never Smokeless Tobacco: Never Alcohol Use Standard Drinks/Week Comments Yes 0 (1 standard drink = 0.6 oz pur e alcohol) Comments Unknown Sex and Gender Information Value Date Recorded Sex Assigned at Not on file Legal Sex Female 7:06 AM EST Gender Identity Not on file Sexual Orientation Not on file Obstetrics History Plan of Treatment Health Maintenance Due Date Last Done Comments Diabetes: Annual Foot Exam 1975 Diabetes: Annual Retina Eye Exam 1975 Hepatitis B Vaccines (1 of 3 - 19+ 3-dose series) 1984 Cervical Cancer Screening: HPV 1986 Zoster Vaccines (1 of 2) 2015 Pneumococcal Vaccine: Pediatrics (0 to 5 Years) and At-Risk Patients (6 to 64 Years) (2 of 2 - PCV) 07/30/2019 07/30/2018 Breast Cancer Screening 09/01/2020 09/01/20 18, 08/13/2018, 08/12/2017 Depression Screening 11/09/2022 HIV Screening 11/09/2022 Social Influencers of Health Screening 11/09/2022 Diabetes: Annual Urine Albumin-Creatinine Ratio (uACR) 11/16/2022 06/27/2021 Diabetes: Blood Sugar Control Test (HGBA1C) 11/16/2022 12/12/2021 Diabetes: Annual GFR (Glomerular Filtration Rate) 12/12/2022 12/12/2021 COVID-19 Vaccine ( season) 2024 05/14/2021, 04/16/2021 Influenza Vaccine (#1) 2024 2, 11/18/2020, 08/11/2019, Additional history exists Cholesterol Screening (Lipid Panel) 12/12/2026 12/12/2021 DTaP,Tdap,and Td Vaccines (2 - Td or Tdap) 01/02/2028 01/02/2018 Colorectal Cancer Screening: Colonoscopy 03/21/2032 03/21/2022 RSV Immunization Patients 60+ Years Old (1 - 1-dose 75+ series) 2040 Hepatitis C Screening Completed 06/13/2016 HIB Vaccines Aged Out No longer eligi ble based on patient's age to complete this topic HPV Vaccines Aged Out No longer eligi ble based on patient's age to complete this topic Hepatitis A Vaccines Aged Out No long er eligible based on patient's age to complete this topic IPV Vaccines Aged Out No longer eligi ble based on patient's age to complete this topic MMR Vaccines Aged Out No longer eligi ble based on patient's age to complete this topic Meningococcal ACWY Vaccine Aged Out N o longer eligible based on patient's age to complete this topic RSV Immunization Patients Under 20 months Aged Out No longer eligible based on patient's age to complete this topic Varicella Vaccines Aged Out No longer eligible based on patient's age to complete this topic Procedures Procedure Name Priority Date/Time Associated Diagnosis Comments COLONOSCOPY Routine 03/21/2022 ANNUAL BMP BLOOD TEST Routine 12/12/2021 HEMOGLOBIN A1C Routine 12/12/2021 LIPID PANEL Routine 12/12/2021 URINE ALBUMIN CREATININE RATIO Routine 06/27/2021 DX MAMMO INCL CAD UNI Routine 09/01/2018 1:45 PM EDT Other abnormal and inconclusive findings on diagnostic imaging of breast HEPATITIS C SCREENING Routine 06/13/2016 from Last 3 Months or Most Recently Relevant to Health Maintenance Results * Colonoscopy (03/21/2022) Colonoscopy NO INTERPRETATION , ABSTRACTED Anatomical Region Laterality Modality Other us Historical Provider HEALTH MAINTENANCE Final Result * Annual BMP Blood Test (12/12/2021) Pathologist [facility] Annual BMP Blood Test ABSTRACTED Result [facility] HEALTH MAINTENANCE Final Result * (ABNORMAL) Hemoglobin A1c (12/12/2021) [facility] Hemoglobin A1C 6.6(A) <=6.5 % Blood Venous blood specimen / Unknown Result [facility] Provider LAB BLOOD ORDERABLES Luli l Result * (ABNORMAL) Lipid panel (12/12/2021) [facility] LDL/HDL Ratio 7(A) 0 - 4 Triglycerides 161(A) 0 - 150 mg/dL Cholesterol 239(A) 0 - 200 mg/dL HDL 34(A) >=40 mg/dL LDL Cholesterol 173(A) 0 - 100 mg/dL Blood Venous blood specimen / Unknown Result [facility] LAB BLOOD ORDERABLES Luli l Result * Urine Albumin Creatinine Ratio (06/27/2021) [facility] Urine Albumin Creatinine Ratio ABSTRACTED Result [facility] HEALTH MAINTENANCE Final Result * DX MAMMO INCL CAD UNI (09/01/2018 1:45 PM EDT) Anatomical Region Laterality Modality Mammography 08/17/2018 10:1 3 AM EDT Narrative 09/01/2018 2:08 PM EDT This is a summary report. The complete report is available in the patient's medical record. If you cannot access the medical record, please contact the sending organization for a detailed fax or copy. Right breast mammogram, additional views. Limited right breast ultrasound. Spot compression MLO and straight lateral views of the right breast were obtained to follow 08/16/18 exam. The density of concern in the retroareolar right breast was not confirmed on the additional views. Limited ultrasound of the right breast was performed with attention to the anterior breast in the upper outer and upper inner quadrants. No cystic or solid masses or acoustic shadowing identified. Conclusions: No evidence for malignancy in the right breast. Findings were explained to the patient. Follow-up mammogram in 1 year. BI-RADS 1, negative. Procedure Note Florencia Resendez MD - 11/19/2022 This is a summary report. The complete report is available in thepatient's medical record. If you cannot access the medical record, pleasecontact the sending organization for a detailed fax or copy. Right breast mammogram, additional views. Limited right breastultrasound. Spot compression MLO and straight lateral views of the right breast wereobtained to follow 08/16/18 exam. The density of concern in the retroareolar right breast was not confirmedon the additional views. Limited ultrasound of the right breast was performed with attention to theanterior breast in the upper outer and upper inner quadrants. No cystic orsolid masses or acoustic shadowing identified. Conclusions: No evidence for malignancy in the right breast. Findings wereexplained to the patient. Follow-up mammogram in 1 year. BI-RADS 1, negative. More Hanley MD IMG BI PROCEDURES Final Result * Hepatitis C Screening (06/13/2016) Hepatitis C Screening ABSTRACTED Historical Provider HEALTH MAINTENANCE Final Result from Last 3 Months or Most Recently Relevant to Health Maintenance Care Teams Apartment Maintenance Relationship Specialty Start Date End Date Monique Almaguer MD [address] [place] [address] PCP - General Internal Medicine 02/15/21
--- OUTSIDE RECORDS SUMMARY | 2025-01-12 14:07 | XMS_ITS | Continuity of Care Document ---
Author Organization [facility] ter Address [address] [place] [id number]- Care Team Providers Care Eyeglass Inspector Name Role Phone Not on Staff, PCP Primary Care Physician Unavail able Encounter [facility] [place] Date(s): 12/28/24 - 12/28/[address] [address] [[email or web address] Discharge Disposition: A-D/C Home Attending Physician: Mauro Quesada MD Admitting Physician: Mauro Quesada MD Referring Physician: Mazin Abebe MD Encounter Type: Disch Daystay Allergies, Adverse Reactions, Alerts No Known Allergies Immunizations Given and Recorded Vaccine Date Status Refusal Reason Hepatitis A Adult Vaccine 1 06/11/11 Given Tet/Diphth/Acel, Pertussis (oldterm) 01/08/11 Give n FluLaval (oldterm) 10/05/10 Given pneumococcal 23-valent vaccine 10/05/10 Given 1Admin Note: HAVRIX Medications atorvastatin 40 mg oral tablet = 40 mg, By Mouth, Daily at bedtime, # 30 tablet, 0 Refills, Maintenance, 09/11/23 8:16:00 AM EDT, Tablet, [facility] - [place], [place], Partial fill upon patient request if the prescription is for a schedule II opioid drug., 165, cm, 09/11/23 7:48:00 EDT, Height, 90.2, kg, 09/09/23 16:39:00 EDT, Dry Weight Start Date: 09/11/23 Stop Date: 10/11/23 Status: Ordered Quantity: 30.0 Unit: tablet Repeat number: 1 Citalopram By Mouth, Daily, 0 Refills, Maintenance, 12/28/24 7:43:00 AM EST, Partial fill upon patient request if the prescription is for a schedule II opioid drug. Start Date: 12/28/24 Status: Ordered Repeat number: 1 Metformin By Mouth, 0 Refills, Maintenance, 12/28/24 7:43:00 AM EST, Partial fill upon patient request if the prescription is for a schedule II opioid drug. Start Date: 12/28/24 Status: Ordered Repeat number: 1 Omeprazole By Mouth, Daily, 0 Refills, Maintenance, 12/28/24 7:43:00 AM EST, Partial fill upon patient request if the prescription is for a schedule II opioid drug. Start Date: 12/28/24 Status: Ordered Repeat number: 1 Problem List Condition Confirmation Course Effective Dates Status Health St atus Informant Overweight (BMI 25.0-29.9) Confirmed Active Laparoscopic adjustable gastric banding Confirmed 05/2010 Active Obese class II Confirmed Active Vital Signs Most recent to oldest [Reference Range]: 1 2 3 Height 165 cm (12/28/24 7:44 AM) Weight 95.6 kg (12/28/24 7:44 AM) Oxygen Saturation [94-100 %] 94 % (12/28/24 12:30 PM) 95 % (12/28/24 12:00 PM) 96 % (12/28/24 11:30 AM) Pulse Rate [55-90 bpm] 66 bpm (12/28/24 7:44 AM) Body Mass Index [18.5-24.99 kg/m2] 35.11 kg/m2 *>HHI* (12/28/24 7:44 AM) Blood Pressure [90-138/55-84 mm Hg] 119/95mm Hg (12/28/24 12:30 PM) 130/73mm Hg (12/28/24 12:00 PM) 114/71mm Hg (12/28/24 11:30 AM) Respiratory Rate [16-30 br/min] 15 br/min *L* (12/28/24 12:45 PM) 15 br/min *L* (12/28/24 12:30 PM) 14 br/min *L* (12/28/24 12:00 PM) Temperature [96.8-100.4 DegF] 97.0 DegF (12/28/24 7:44 AM) Mode of Delivery (Oxygen) Room air (12/28/24 12:30 PM) Room air (12/28/24 12:00 PM) Room air (12/28/24 11:30 AM) Blood pressure sites Arm, right (12/28/24 7:44 AM) Temperature Route Temporal (12/28/24 7:44 AM) Dry Weight 95.6 kg (12/28/24 7:44 AM) Weight Obtained Via Standing scale (12/28/24 7:44 AM) Dry Weight Obtained Via Standing scale (12/28/24 7:44 AM) Note * Event Display: Hemodynamic Procedure Report Authored Date: [id number] * Linh Melendrez RN: PERFORM Event Display: Discharge/Transfer Note Hospital Authored Date: [id number] Nursing Discharge Note Entered On: 12/28/2024 14:14 EST Performed On: 12/28/2024 14:14 EST by Linh Melendrez RN Nursing Discharge Note 2 Discharge Time : 12/28/2024 13:04 EST Discharge Level of Care at Discharge : Home/Usp/Foster Care Patient Left Unit Via : Wheelchair Patient Accompanied Off Unit with : Responsible adult DC Instructions Provided & Signed by Pt : Yes Patient Understands D/C Instructions : Yes Patient Instructions Discharge Signed : Yes Did Pt have Specialty Bed or Wound Vac : No Linh Melendrez RN - 12/28/2024 14:14 EST * Linh Melendrez RN: PERFORM Event Display: Patient Education/Instruction Authored Date: [id number] Inpatient Adult Discharge Instructions. [address] [id number] Name: CHRISTIE VIKTORIA : 1965?? Visit: 12/28/2024 06:29?? Current Date: 12/28/2024 12:28 ?? Account: [id number]?? Inpatient Adult Discharge Instructions We would like to thank you for allowing us to assist you with your healthcare needs. The following includes patient education materials and information regarding your injury/illness. Our entire staffstrives to provide an excellent experience for our patients and their families. PLEASE ENSURE YOU FOLLOW-UP PER THE INSTRUCTIONS BELOW! ?? YOUR OPINION IS IMPORTANT TO US! Please complete the survey you may receive by mail or email. Your feedback will be used to make improvements to the healthcare experiences of our patients and their families. Surveys are administered by [employer] ?? If further treatment with your primary care physician or another doctor is recommended, it is important for you to keep the appointment. Call your primary care physician or return to the Emergency Department immediately if your condition worsens, fails to improve, or new symptoms develop. If you need to find a doctor, you can call [facility] [email or web address] Link for a referral at [phone] or toll free at [phone]) or log in to [email or web address] ?? [facility], in keeping with [facility] guidance, no longer requires face masks for staff, patientsor visitors in most situations. Similiar to time spent indoors at other locations, there is the chance that you were exposed to repiratory viruses during your time with us (such as flu or COVID-19). If you develop symptoms concerning for a viral respiratory infection, please seek testing (and treatment if indicated) from your medical provider or home test kit. ?? You can view and manage your care through the patient portal or by using a health care dandre of your choosing. [employer] is a website that allows you to securely view your medical information including your hospital discharge summary, office visit summaries, medications and follow-up visits. You can also request appointments, renew medications, and request access to your medical information using a health care dandre of your choosing, or just ask a question. You can enroll at [email or web address] or register during your next office visit. You have been discharged from [facility], Patient Care Unit: CARE??. If you have any questions regarding these instructions, including results of studies pending, afteryou leave, please call us and we will be happy to assist you 23/06. [facility] Nursing Unit Direct Phone Number, for 23/06 contact and results of studies pending CARE [address] [place] [address] Your Care Team Attending Physician Mauro Quesada MD?? Consulting Providers Mauro Quesada MD?? Discharging Providers Mauro Quesada MD Tests Performed Below is a partial list of the tests performed during your hospitalization. You may have had other tests and procedures not included in this list. Please discuss all test results with your provider. GLUCOSE POC Type and Screen Glucose POC?? Type and Screen?? Primary Care Provider Not on Staff, PCP?? Advance Directive Health Care Proxy on File Yes - Health Care Proxy Discharge Vitals Temperature: 97 DegF Height: 165 cm Pulse Rate: 66 bpm Weight: 95.6 kg Respiratory Rate:??14 br/min??Low Body Mass Index:??35.11 kg/m2??Critical Systolic Blood Pressure: 130 mm Hg Body surface area: 2.09 Diastolic Blood Pressure: 73 mm Hg ?? Oxygen Saturation: 95 % ?? Studies Pending All studies ordered during this hospital stay have been completed unless listed below. Please discuss all pending results with your provider listed above in these instructions. ?? No incomplete studies found?? What to do next Instructions From Your Doctor ?? Orders?? Daystay Protocol, ??12/28/24 9:08:00 EST?? You Need to Schedule the Following Appointments Follow Up with??Mauro Quesada MD When:??Within 1 week: call to discuss follow up visit Where: [address] [place] [address] [facility] [place] [address]- Discharge Medications CHRISTIE BLUM :1965 Visit Date:12/28/2024 Medications: Please continue your medications until treatment is completed or stopped by your provider. Medications not listed below should be discontinued. Discuss any questions related to medications with your provider. What How Much When Instructions Next Dose Unchanged Atorvastatin (atorvastatin 40 mg oral tablet) 40 Milligram Oral Daily at Bedtime Duration: 30 Days resume Unchanged Citalopram Oral Daily resume Unchanged Metformin Oral Friday12/31/2024 Unchanged Omeprazole Oral Daily resume Prescription Given During Visit No new medications prescribed at time of discharge.?? Laboratory Results Below is a partial list of the most recent Laboratory test results done prior to this discharge. You may have had other tests and procedures not included in this list. Please discuss all test resultswith your provider. GLUCOSE POC (12/28/2024) ???Glucose, POC - 149 mg/dL Type and Screen (12/28/2024) ???Blood Type - A Positive???Antibody Screen - Negative You will be contacted within 72 hours with your results. Allergies (NKA means No Known Allergies) NKA Problems Active Problems??(5) Anemia?? Hyperlipids?? Laparoscopic adjustable gastric banding?? Obese class II?? Overweight (BMI 25.0-29.9)?? Education Materials Below is the list of Educational Leaflet Providered with your Discharge Instructions. [employer] Ignite Patient Education - Surgery Radial Cath Approach Discharge Instructions?? Valuables and Belongings I fully understand and agree that [facility] accepts no responsibility for all my personal property including clothing, toilet articles, radios, jewelry, dentures, hearing aids, rings, money, or any other property that is in my possession or is brought to me after admission. I understand certain valuables may be placed in a hospital safe for a short period of time. I understand that the hospital is not liable for loss or damage due to accident, fire, or other natural occurrence while said property is in the safe. I accept full responsibility for any personal property that I keep with me, and will not hold the hospital responsible in case of loss or disappearance. I acknowledge that i have been encouraged to send valuables and belongings home. ?? Review of Valuable and Belonging List: With patient Date for Pt to Sign Valuables/Belongings: 12/28/24 07:44:00 ?? Valuables & Belongings ?? Clothes Electronic devices Jewelry Monetary Items Personal devices Miscellaneous Medications (Valuables) Valuables at Bedside Pants, Shirt, Shoes, Undergarments ? Valuables Sent Home ? Valuables Sent to Security ? Valuables Sent to Locker ? Other Discharge Information ? Pulmonary Rehab Status?? Pulmonary Rehab Discharge Status?? Respiratory Rate:??14 br/min??Low ? Common Emergency Awareness Tips IS IT A STROKE? Act FAST and Check for these signs: FACE Does the face look uneven? ARM Does one arm drift down? SPEECH Does their speech sound strange? TIME Call 9-1-1 at any sign of stroke ?? Heart Attack Signs Chest discomfort: Most heart attacks involve discomfort in the center of the chest and lasts more than a few minutes, or goes away and comes back. It can feel like uncomfortable pressure, squeezing, fullness or pain. Discomfort in upper body: Symptoms can include pain or discomfort in one or both arms, back, neck, jaw or stomach. Shortness of breath: With or without discomfort. Other signs: Breaking out in a cold sweat, nausea, or lightheaded. Remember, MINUTES DO MATTER. If you experience any of these heart attack warning signs, call to get immediate medical attention! ?? Smoking can increase your chances of developing chronic health problems and can cause harmful effects to other family members in your house. If you smoke, you are strongly encouraged to quit. Please call [facility] [email or web address] Link at [phone] or [phone] ([phone]) or log in to [email or web address] for referrals to smoking cessation programs. ?? 894 Suicide & Crisis Lifeline is available 23/06 if you or someone you know needs to find a reason to keep living. By calling 315 you'll be connected to a skilled, trained counselor at a crisis center in your area. INPATIENT DISCHARGE INSTRUCTIONS SIGNATURE PAGE CHRISTIE BLUM Location:[facility] Registration Date and Time:12/28/2024 06:29 EST Primary Care Physician: Not on Staff, PCP Attending Physician: Dipak OROURKE, [facility], I CHRISTIE BLUM, have received the above patient education materials/instructions and have verbalized understanding. If ambulance or transport services are being used I further acknowledge being given a choice of service. ?? If you need to contact me, please call me at this number: . Patient/Director Of Catering Sales Name: Patient/Director Of Catering Sales Signature: Relationship to Patient: Witness Name/Signature: Date: * Linh Melendrez RN: PERFORM Event Display: Patient Education Leaflets Authored Date: [id number] Surgery Radial Cath Approach Discharge Instructions ?? 278 Radial Cath Approach Discharge Instructions ?? Activity Take it easy the rest of the day. Limit your activity on the affected side.?? Act as if your arm is broken for 24 hours. No lifting with affected arm for 24 hours. No pushing or pulling with the affected arm. Do not reach or lift with the affected arm. Do not place excessive pressure on the wrist. ?? Precautions Due to intravenous sedation: It is recommended that someone stay with you for the first night after your procedure. Do not drive or operate hazardous machinery for 24 hours. Do not make legal decisions for 24 hours. Avoid alcohol for 24 hours. Unless directed otherwise, keep yourself hydrated. ?? Dressing/Incision Care You may remove the dressing 24 hours after your procedure. Replace with band aid for an additional 24 hours. You may shower and cleanse the site with soap & water then pat dry. Avoid submersion of site in water x 5 days. Cover the with a clean band aid daily until site is healed. If the band aid becomes soiled, replacewith a clean new one. Do not apply any ointments, lotions, gels or powders to the puncture site. ?? When to contact your doctor If any of the following signs of infection occur: Fever greater than 100 degrees F Increased pain Drainage, redness or warmth at puncture site Tingling of the fingers and hand that last longer than 3 days Slight bubble of blood or bleeding from site: apply manual pressure and notify your doctor ?? Emergency situations: Bleeding from the site that will not stop: apply manual pressure and notify your doctor Profuse bleeding streaming from the puncture site: Apply manual pressure and notify your doctor immediately If your hand becomes bluish, cold to the touch, or painful, notify your doctor immediately or go toEmergency Department. For these emergent situations: If unable to contact your physician, call 911. ?? EKG study * Event Display: ECG 12-Lead Authored Date: Please click on pdf link to open report * Event Display: ECG 12-Lead Authored Date: Ventricular Rate: 60 BPM Atrial Rate: 60 BPM P-R Interval: 138 ms QRS Duration: 106 ms Q-T Interval: 466 ms QTC Calculation(Bazett): 466 ms P [place]: 20 degrees R [place]: 13 degrees T [place]: 27 degrees Normal sinus rhythm T wave abnormality, consider anterior ischemia Prolonged QT Abnormal ECG When compared with ECG of 09-Sep-2023 12:11, Left posterior fascicular block is no longer Present Minimal criteria for Inferior infarct are no longer Present Confirmed by Rodo Dixon ([id number]) on 12/28/2024 12:29:35 PM [place]: Rodo Dixon Patient Care team information Care Team Personnel Name: Not on Staff, PCP Position: S Physician (General Medicine) Member Role: PCP Care Team Related Persons Name: EDWARDO MCQUEEN Name: SERGIO RAYA Insurance Providers Guarantor name: CHRISTIE BLUM Health Plan Information #: 2 Payer: [facility] FF NON BHP HMO Member Number: [id number] Policy Number: NA Group Number: NA Health Plan Information #: 1 Payer: [employer] H[employer] Member Number: [id number] Policy Number: NA Group Number: [id number]
== END 2025-01-12 13:29 | disposition home or self-care (01) ==
PROVIDERS: PCP Nurse Practitioner Family
DX: R07.9 Chest pain, unspecified (principal); R06.00 Dyspnea, unspecified; R00.2 Palpitations
CPT/HCPCS: 99214

== ENCOUNTER → 2025-01-14 07:41 | Outpatient (BNV) | payer OTHER, SELFPAY | PROVIDERS: PCP Nurse Practitioner Family; Visit Provider Internal Medicine | DX: I47.10 Supraventricular tachycardia, unspecified (principal) | CPT/HCPCS: 93244 ==

== ENCOUNTER → 2025-01-14 08:21 | Outpatient (REF) | payer OTHER, SELFPAY ==
--- OUTSIDE RECORDS SUMMARY | 2025-01-14 08:35 | XMS_ITS | Clinical Summary ---
Author Organization [facility] [address] it Address [address] [place] [address] Care Team Providers Care Tripe Scraper Name Role Phone Monique Almaguer MD Primary Care Provider [phone] Allergies No known active allergies Medications citalopram [...] complication, without long-term current use of insulin ([facility]) 07/30/2018 DX:Controlled type 2 diabete s mellitus without complication, without long-term current use of insulin ([facility]) Generalized anxiety disorder 04/02/2016 DX: Generalized anxiety disorder Other complications of gastr ic band procedure 09/28/2018 DX:Other complications of ga stric band procedure Positive ROMI (antinuclear antibody) 02/11/2018 DX:Positive ROMI (antinuclear antibody) Class 2 severe obesity due t o excess calories with serious comorbidity and body mass index (BMI) of 35.0 to 35.9 in adult ([facility]/H[facility]) 09/28/2018 DX:Class 2 severe obesity du e to excess calories with serious comorbidity and body mass index (BMI) of 35.0 to 35.9 in adult ([facility]); COMMENT: Diabetes, Hyperlipidemia Family History Medical History [...] * Annual BMP Blood Test (12/12/2021) Pathologist [facility] Annual BMP Blood Test ABSTRACTED Result [facility] HEALTH MAINTENANCE Final Result * (ABNORMAL) Hemoglobin A1c (12/12/2021) [facility] Hemoglobin A1C 6.6(A) <=6.5 % Blood Venous blood specimen / Unknown Result [facility] Provider LAB BLOOD ORDERABLES Luli l Result * (ABNORMAL) Lipid panel (12/12/2021) [facility] LDL/HDL Ratio 7(A) 0 - 4 Triglycerides 161(A) 0 - 150 mg/dL Cholesterol 239(A) 0 - 200 mg/dL HDL 34(A) >=40 mg/dL LDL Cholesterol 173(A) 0 - 100 mg/dL Blood Venous blood specimen / Unknown Result [facility] LAB BLOOD ORDERABLES Luli l Result * Urine Albumin Creatinine Ratio (06/27/2021) [facility] Urine Albumin Creatinine Ratio ABSTRACTED Result [facility] HEALTH MAINTENANCE Final Result * DX MAMMO [...] Recently Relevant to Health Maintenance Care Teams Tripe Scraper Relationship Specialty Start Date End Date Monique Almaguer MD [address] [place] [address] PCP - General Internal Medicine 02/15/21
== END ==
LOC: HO.CARD 08:21
PROVIDERS: PCP Nurse Practitioner Family
DX: R00.2 Palpitations (principal)
CPT/HCPCS: 93242

== ENCOUNTER 2025-02-11 07:55 | Outpatient (REF) | payer OTHER, SELFPAY ==
--- OUTSIDE RECORDS SUMMARY | 2025-02-11 07:57 | XMS_ITS | Clinical Summary ---
Author Organization [facility] it Address [address] [place] [address] Care Team Providers Care Egg Grader Name Role Phone Monique Almaguer MD Primary Care Provider [phone] Allergies No known active allergies Medications citalopram [...] complication, without long-term current use of insulin ([facility]/HCC) 07/30/2018 DX:Controlled type 2 diabete s mellitus without complication, without long-term current use of insulin ([facility]) Generalized anxiety disorder 04/02/2016 DX: Generalized anxiety disorder Other complications of gastr ic band procedure 09/28/2018 DX:Other complications of ga stric band procedure Positive ROMI (antinuclear antibody) 02/11/2018 DX:Positive ROMI (antinuclear antibody) Class 2 severe obesity due t o excess calories with serious comorbidity and body mass index (BMI) of 35.0 to 35.9 in adult ([facility]/HCC) 09/28/2018 DX:Class 2 severe obesity du e to excess calories with serious comorbidity and body mass index (BMI) of 35.0 to 35.9 in adult ([facility]); COMMENT: Diabetes, Hyperlipidemia Family History [...] Exam 1975 Hepatitis B Vaccines (1 of - 19+ 3-dose series) 1984 Cervical Cancer Screening: HPV 1986 Zoster Vaccines (1 of 2) 2015 Pneumococcal Vaccine: 50+ Years (2 of 2 - PCV) 07/30/2019 07/30/2018 Pneumococcal Vaccine: Pediatrics (0 to 5 Years) [...] patient's age to complete this topic Meningococcal B Vacine Aged Out No lo nger eligible based on patient's age to complete [...] to Health Maintenance Results * Colonoscopy (03/21/2022) Pathologist [facility] Colonoscopy NO INTERPRETATION , ABSTRACTED Anatomical Region Laterality Modality Other Result [facility] Provider HEALTH MAINTENANCE Final Result * Annual BMP Blood Test (12/12/2021) Pathologist [facility] Annual BMP Blood Test ABSTRACTED Result [facility] HEALTH MAINTENANCE Final Result * (ABNORMAL) Hemoglobin A1c (12/12/2021) [facility] Hemoglobin A1C 6.6(A) <=6.5 % Blood Venous blood specimen / Unknown Result [facility] Provider LAB BLOOD ORDERABLES Luli l Result * (ABNORMAL) Lipid panel (12/12/2021) [facility] LDL/HDL Ratio 7(A) 0 - 4 Triglycerides 161(A) 0 - 150 mg/dL Cholesterol 239(A) 0 - 200 mg/dL HDL 34(A) >=40 mg/dL LDL Cholesterol 173(A) 0 - 100 mg/dL Blood Venous blood specimen / Unknown Result [facility] Provider LAB BLOOD ORDERABLES Luli l Result * Urine Albumin Creatinine Ratio (06/27/2021) [facility] Urine Albumin Creatinine Ratio ABSTRACTED Result [facility] Provider HEALTH MAINTENANCE Final Result * DX MAMMO [...] Final Result * Hepatitis C Screening (06/13/2016) Pathologist [facility] Hepatitis C Screening ABSTRACTED Historical Provider HEALTH MAINTENANCE Final Result from Last 3 Months or Most Recently Relevant to Health Maintenance Care Teams Egg Grader Relationship Specialty Start Date End Date Monique Almaguer MD [address] [place] [address] PCP - General Internal Medicine 02/15/21
--- NOTE | 2025-02-11 07:59 | PFT_ITS ---
Flows: FEV1: 92 % of predicted at 2.33 L FVC: 90 % of predicted at 2.87 L FEV1/FVC: 81 % Bronchodilator response: Absent Volumes: Total lung capacity: 81 % of predicted at 4.15 L Residual volume: 75 % of predicted at 1.29 L Slow vital capacity: 84 % of predicted at 2.86 L Expiratory reserve volume: 61 % of predicted at 0.52 L Diffusion capacity: Normal Impression: No obstructive or restrictive ventilatory defect. No bronchodilator response. Normal pulmonary function test. MTDD
[2025-02-11 08:43] VITALS: PULSE 65
[2025-02-11 10:09] LABS: Cholesterol 133 mg/dL (<200); HDL Cholesterol 32 mg/dL (>40); LDL Cholesterol Calculated 67 mg/dL (<100); Triglycerides 171 mg/dL (<150)
== END 2025-02-11 07:56 | disposition home or self-care (01) ==
LOC: HO.RESP 07:55
PROVIDERS: Absent Provider Nurse Practitioner Family; PCP Nurse Practitioner Family
DX: R06.00 Dyspnea, unspecified (principal); E78.5 Hyperlipidemia, unspecified
CPT/HCPCS: 36415; 80061; 94010; 94640; 94727; 94729

== ENCOUNTER → 2025-02-11 07:59 | Outpatient (BNV) | payer OTHER, SELFPAY | PROVIDERS: Absent Provider Nurse Practitioner Family; PCP Nurse Practitioner Family; Visit Provider Internal Medicine Pulmonary Disease | DX: R06.00 Dyspnea, unspecified (principal) | CPT/HCPCS: 94060; 94727; 94729 ==

== ENCOUNTER 2025-02-17 15:13 | Outpatient (REF) | payer OTHER, SELFPAY ==
--- OUTSIDE RECORDS SUMMARY | 2025-02-17 17:40 | XMS_ITS | Clinical Summary ---
Author Organization [facility] it Address [address] [place] [address] Care Team Providers Care Net Finisher Name Role Phone Monique Almaguer MD Primary Care Provider [phone] Allergies No known active allergies Medications citalopram [...] complication, without long-term current use of insulin 07/30/2018 DX:Controlled type 2 diabetes mellitus without complication, without long-term current use of insulin (HCC) Generalized anxiety disorder 04/02/2016 DX: Generalized anxiety disorder Other complications of gastr ic band procedure 09/28/2018 DX:Other complications of ga stric band procedure Positive ROMI (antinuclear antibody) 02/11/2018 DX:Positive ROMI (antinuclear antibody) Class 2 severe obesity due t o excess calories with serious comorbidity and body mass index (BMI) of 35.0 to 35.9 in adult ([facility]/HCC) 09/28/2018 DX:Class 2 severe obesity du e to excess calories with serious comorbidity and body mass index (BMI) of 35.0 to 35.9 in adult ([facility]); COMMENT: Diabetes, Hyperlipidemia Family History [...] Health Maintenance Results * Colonoscopy (03/21/2022) Pathologist [facility] Colonoscopy NO INTERPRETATION , ABSTRACTED Anatomical Region Laterality Modality Other Result [facility] HEALTH MAINTENANCE Final Result * Annual BMP Blood Test (12/12/2021) Pathologist [facility] Annual BMP Blood Test ABSTRACTED Result [facility] HEALTH MAINTENANCE Final Result * (ABNORMAL) Hemoglobin A1c (12/12/2021) [facility] Hemoglobin A1C 6.6(A) <=6.5 % Blood Venous blood specimen / Unknown Result [facility] Provider LAB BLOOD ORDERABLES Luli l Result * (ABNORMAL) Lipid panel (12/12/2021) [facility] LDL/HDL Ratio 7(A) 0 - 4 Triglycerides 161(A) 0 - 150 mg/dL Cholesterol 239(A) 0 - 200 mg/dL HDL 34(A) >=40 mg/dL LDL Cholesterol 173(A) 0 - 100 mg/dL Blood Venous blood specimen / Unknown Result [facility] Provider LAB BLOOD ORDERABLES Luli l Result * Urine Albumin Creatinine Ratio (06/27/2021) [facility] Urine Albumin Creatinine Ratio ABSTRACTED Result [facility] HEALTH MAINTENANCE Final Result * DX MAMMO [...] 1 year. BI-RADS 1, negative. Procedure Note Florecnia Resendez MD - 11/19/2022 This is a [...] Recently Relevant to Health Maintenance Care Teams Net Finisher Relationship Specialty Start Date End Date Monique Almaguer MD [address] [place] [address] PCP - General Internal Medicine 02/15/21
== END 2025-02-17 15:14 | disposition home or self-care (01) ==
LOC: HO.MAMMO 15:13
PROVIDERS: PCP Nurse Practitioner Family
DX: Z12.31 Encounter for screening mammogram for malignant neoplasm of breast (principal)
CPT/HCPCS: 77063; 77067

== ENCOUNTER → 2025-02-17 15:30 | Outpatient (BNV) | payer OTHER, SELFPAY | PROVIDERS: PCP Nurse Practitioner Family; Visit Provider Internal Medicine | DX: Z12.31 Encounter for screening mammogram for malignant neoplasm of breast (principal) | CPT/HCPCS: 77063; 77067 ==

== ENCOUNTER 2025-03-17 15:15 | Outpatient (AMB) | payer OTHER, SELFPAY ==
--- NOTE | 2025-03-17 15:22 | A.OFFVIS_ITS ---
Vital Signs 03/17/25 15:24 Height 5 ft 4 in Weight 208 lb 1.862 oz BMI 35.7 BP 110/60 Blood Pressure Location Lt brachial Position Sitting Pulse 78 Pulse Source Pulse Oximeter Intake Visit Reasons: follow up holter Intake Note: f/up-holter Accompanied by: Self / Same As Patient Allergies No Known Allergies Allergy (Verified 11/17/24 15:15) Medication List - Last Reconciled 03/17/25 by Mateo Leyva NP acetaminophen ER (Tylenol 8 Hour) 650 mg PO Q8H PRN atorvastatin 40 mg PO DAILY 30 days citalopram 40 mg PO QAM 30 days fenofibrate 54 mg PO DAILY 90 days metformin 500 mg PO DAILY 30 days nitroglycerin 0.4 mg sublingual Q5M PRN omeprazole 20 mg PO DAILY 30 days HPI Comments Details: This is a 59-year-old female patient presenting for a follow-up visit. Patient with a history of diabetes and hyperlipidemia. The patient initially sought care for chest discomfort and subsequently underwent a cardiac catheterization which was negative. Despite this, she continued to report symptoms of palpitations and shortness of breath on exertion. In response to this, patient underwent a Holter monitor and pulmonary function tests. She is here to review the results of those tests. Patient reports persistent shortness of breath with exertion today but denies any associated exertional chest pain, dizziness, orthopnea, PND, leg edema, presyncope, or syncope. Additionally, due to her history of snoring and episodes of apnea at night as reported by her , a sleep study test was ordered which is pending at this time. Patient is otherwise reporting compliance with her medications. [facility] Medical History Depression Anxiety Diabetes mellitus Hyperlipidemia Surgical History History of cardiac cath Gastric bypass status for obesity Hx of laparoscopic gastric banding Family History Father COPD (chronic obstructive pulmonary disease) Cardiac abnormality No family history of mental disorder Mother No family history of mental disorder Breast cancer Sister No family history of mental disorder Breast cancer Sister No family history of mental disorder Ovarian cancer in remission Social History Household Members: Spouse Housing: House Alcohol intake: current Alcohol intake frequency: holidays/special occasions only Alcohol type: wine Patient Tobacco Use Status: Never used Tobacco e-Cigarette/Vaping Use: Never Used service: No Current occupational status: employed 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 Sexual orientation: Straight/Heterosexual Gender identity: Female Cognitive needs: No Hearing needs: Yes Vision needs: Yes Review of Systems Const Denies chills, Denies fatigue, Denies fever(s), Denies frequent falls, Denies weakness, Denies weight gain and Denies weight loss ENT Denies dizziness Card Denies chest pain, Denies leg edema, Denies lightheadedness, Denies palpitations, Denies dyspnea and Denies dyspnea on exertion Resp Denies cough, Denies dyspnea and Denies dyspnea on exertion GI Denies hematochezia Musc Denies abnormal gait, Denies muscle weakness, Denies numbness, Denies radiating pain into limb and Denies tingling Neuro Denies abnormal gait, Denies dizziness, Denies frequent falls, Denies numbness, Denies tingling and Denies weakness Endo Denies fatigue and Denies palpitations Physical Exam Vital Signs: Last Vital Signs Pulse 78 03/17/25 15:24 BP 110/60 03/17/25 15:24 BMI result Body Mass Index 35.7 Const General: cooperative, healthy appearing, comfortable and no acute distress Orientation/consciousness: patient oriented x3 HEENT Head: Yes normal to inspection Neck Neck: Yes normal visual inspection, Yes trachea midline and Yes supple Chest Chest palpation & inspection: normal inspection of the chest Resp Effort & Inspection: normal respiratory effort Auscultation: clear to auscultation bilaterally, no crackles, no rales, no rhonchi and no wheezes Cardio Jugular venous distension: no JVD Palpation: normal PMI Rate: regular rate Rhythm: regular rhythm Heart sounds: S1 normal heart sound present, S2 normal heart sound present, no c lick, no gallops, no murmurs and no rubs Peripheral pulses: Peripheral pulses 2+ throughout GI Inspection: Yes normal to inspection Palpation (GI): Soft to palpation Auscultation: normal bowel sounds Skin General skin exam: no rashes or lesions noted Neuro General: patient oriented x3 Extrem General: Yes normal to inspection, No no pedal edema and No calf tenderness Psych Appearance: grossly normal Mental Status: mental status grossly normal Speech and movement: Normal speech and movement present Assessment & Plan Assessment & Plan (1) Dyspnea: Code(s): R06.00 - Dyspnea, unspecified Category: Medical Plan: 10/14/2024-echo study showed normal EF 60-65% with trace mitral and tricuspid valve regurgitation. 12/28/2024-cardiac catheterization showed no coronary artery disease. 01/14/2025-Holter monitor showed underlying normal sinus rhythm with an average rate of 83 beats per minute, with a rare supraventricular ectopy. Her symptoms reported with sinus rhythm in diary. 02/14/2025-to further evaluate her symptoms of shortness of breath, patient underwent pulmonary function test which was normal. Sleep study at this time is pending. We will review this with her once completed. Clinically stable. Patient reassured that all her symptoms are less likely cardiac etiology. Advised heart healthy diet, regular exercise, losing weight to help with these symptoms. Patient will try to get on a weight management program with her PCP. (2) Hyperlipidemia: Code(s): E78.5 - Hyperlipidemia, unspecified Category: Medical Plan: Most recent LDL at 69, within goal of LDL less than 70. Continue statin therapy. Continue fenofibrate. Blood pressure within goal. Ideally, blood pressure goal less than 130/80. (3) Diabetes mellitus: Code(s): E11.9 - Type 2 diabetes mellitus without complications Category: Medical Qualifiers: Diabetes mellitus type: type 2 Diabetes mellitus complication status: without complication Plan: Patient states her blood sugars at home has been under control. Continue diabetes management. A1c goal less than 7.0%. We will follow up with the patient on an as-needed basis. In the interim, patient will call us with any questions or concerns and change in symptoms. This note was generated using voice recognition software. While every effort has been made to ensure accuracy and proper gear tooth grinding machine operator, there may be occasional errors that could affect the content or meaning of the described symptoms. Coding Level of Care Code Tele Est Pt Level 4 (85298) Complex EM visit Add On G2211 Diagnoses Dyspnea R06.00 Hyperlipidemia E78.5 Diabetes mellitus E11.9 Diabetes mellitus type: type 2 Diabetes mellitus complication status: without complication Time Spent (min) 32 Comment Time spent in reviewing the chart, test results, assessment, counseling and documentation.
[2025-03-17 15:24] VITALS: BP 110/60; PULSE 78; BMI 35.7
--- OUTSIDE RECORDS SUMMARY | 2025-03-17 17:58 | XMS_ITS | Clinical Summary ---
Author Organization [facility] it Address [address] [place] [address] Care Team Providers Care Camera Prototyping Engineer Name Role Phone Monique Almaguer MD Primary Care Provider [phone] Allergies No known active allergies Medications citalopram [...] 12/05/2024 Microalbuminuria 08/30/2022 Type II diabetes mellitus wi th renal manifestations (CMS/HCC V24, CMS/HCC V28) 08/30/2022 COVID-19 06/29/2021 Overview (12/05/2024): January 2021 Intestinal malabsorption following gastrectomy 1 Obesity (BMI 30.0-34.9) 09/02/2019 Overview (12/05/2024): s/p sleeve gastrectomy (May 2019) GERD (gastroesophageal reflux disease) 9 Overview (12/05/2024): Mild Type 2 diabetes mellitus wit h obesity ([facility] V24, [facility] V28) 07/30/2018 Positive ROMI (antinuclear antibody) 02/11/2018 Depression [...] complication, without long-term current use of insulin ([facility] V24, [facility] V28) 07/30/2018 DX:Controlled type 2 diabet es mellitus without complication, without long-term current use of insulin ([facility]) Generalized anxiety disorder 04/02/2016 DX: Generalized anxiety disorder Other complications of gastr ic band procedure 09/28/2018 DX:Other complications of ga stric band procedure Positive ROMI (antinuclear antibody) 02/11/2018 DX:Positive ROMI (antinuclear antibody) Class 2 severe obesity due t o excess calories with serious comorbidity and body mass index (BMI) of 35.0 to 35.9 in adult ([facility] V24, [facility] V28) 09/28/2018 DX:Class 2 severe obesity due to excess calories with serious comorbidity and body mass index (BMI) of 35.0 to 35.9 in adult ([facility]); COMMENT: Diabetes, Hyperlipidemia Family History [...] (Glomerular Filtration Rate) 12/12/2022 12/12/2021 COVID-19 Vaccine (3 - season) 2024 05/14/2021, 04/16/2021 Influenza Vaccine (Season Ended) 2025 12/12/2021, 11/18/2020, 08/11/2019, Additional history exists Cholesterol Screening (Lipid Panel) 12/12/2026 12/12/2021 DTaP,Tdap,and Td Vaccines (2 - Td or Tdap) 01/02/2028 01/02/2018 Colorectal Cancer Screening: Colonoscopy 03/21/2032 03/21/2022 RSV Immunization Adult Patients (1 - 1-dose 75+ series) 2040 Hepatitis [...] age to complete this topic Meningococcal B Vaccine Aged Out No l onger eligible based on patient's age to complete [...] to Health Maintenance Results * Colonoscopy (03/21/2022) [facility] Colonoscopy NO INTERPRETATION , ABSTRACTED Anatomical Region Laterality Modality Other [facility] Provider HEALTH MAINTENANCE Final Result * Annual BMP Blood Test (12/12/2021) [facility] Annual BMP Blood Test ABSTRACTED [facility] HEALTH MAINTENANCE Final Result * (ABNORMAL) Hemoglobin A1c (12/12/2021) [facility] Hemoglobin A1C 6.6(A) <=6.5 % Blood Venous blood specimen / Unknown Result [facility] Provider LAB BLOOD ORDERABLES Luli l Result * (ABNORMAL) Lipid panel (12/12/2021) [facility] LDL/HDL Ratio 7(A) 0 - 4 Triglycerides 161(A) 0 - 150 mg/dL Cholesterol 239(A) 0 - 200 mg/dL HDL 34(A) >=40 mg/dL LDL Cholesterol 173(A) 0 - 100 mg/dL Blood Venous blood specimen / Unknown Result [facility] Provider LAB BLOOD ORDERABLES Luli l Result * Urine Albumin Creatinine Ratio (06/27/2021) [facility] Urine Albumin Creatinine Ratio ABSTRACTED [facility] Provider HEALTH MAINTENANCE Final Result * DX [...] Recently Relevant to Health Maintenance Care Teams Camera Prototyping Engineer Relationship Specialty Start Date End Date Monique Almaguer MD [address] [place] [address] PCP - General Internal Medicine 02/15/21
== END 2025-03-17 15:34 | disposition home or self-care (01) ==
LOC: HO.HCS 15:15
PROVIDERS: PCP Nurse Practitioner Family
DX: R06.00 Dyspnea, unspecified (principal); E78.5 Hyperlipidemia, unspecified; E11.9 Type 2 diabetes mellitus without complications
CPT/HCPCS: 99214

== ENCOUNTER → 2025-03-17 15:15 | Outpatient (BNVA) | payer OTHER, SELFPAY | PROVIDERS: PCP Nurse Practitioner Family ==